=== PATIENT | female | born 1985 | race Caucasian/White ===

== ENCOUNTER 2016-11-22 02:38 | Emergency (ER) | payer BC, OTHER ==
[2016-11-22 02:45] VITALS: RESP 18
[2016-11-22] MEDS ORDERED: SODIUM CHLORIDE 0.9% 1,000 ML IV STA (02:54)
[2016-11-22] MEDS ORDERED: KETOROLAC 30 MG/ML 1 ML VIAL IVP STA (02:54)
[2016-11-22] MEDS ORDERED: FAMOTIDINE 20 MG/2 ML VIAL IV STA (02:55)
--- NOTE | 2016-11-22 02:57 | ED ---
General Adult HPI - General Chief complaint: Abdominal Pain Stated complaint: abd pain Time Seen by Provider: 11/22/16 02:50 Source: patient, RN notes reviewed Mode of arrival: ambulatory Limitations: no limitations - History of Present Illness Initial comments: Patient is a pleasant 31-year-old female presenting to the emergency department complaining of abdominal discomfort. Onset of symptoms was 2 hours ago. Symptoms awoke patient from sleep. Patient has had similar symptoms previously however not as bad. Discomfort is epigastric and right upper quadrant. Patient states earlier seem to radiate towards the back. No nausea or vomiting. No constipation or diarrhea. No hematuria or dysuria. No fever. Patient feels it is unlikely she could be . Discomfort is not positional. - Related Data Home Medications Medication Instructions Recorded Confirmed Levothyroxine Sodium [Synthroid] 125 mcg PO DAILY 03/10/15 11/22/16 Previous Rx's Medication Instructions Recorded Ketorolac [Toradol] 10 mg PO Q6HR PRN #15 tab 11/22/16 Allergies Allergy/AdvReac Type Severity Reaction Status Date / Time metoclopramide HCl Allergy Unknown Verified 03/10/15 17:31 [From DEMANDIT] Review of Systems ROS Statement: Those systems with pertinent positive or pertinent negative responses have been documented in the HPI. ROS Other: All systems not noted in ROS Statement are negative. Constitutional: Denies: fever, chills Eyes: Denies: eye pain ENT: Denies: ear pain Respiratory: Denies: cough, dyspnea Cardiovascular: Denies: chest pain Endocrine: Denies: fatigue Gastrointestinal: Reports: abdominal pain. Denies: nausea, vomiting, diarrhea, constipation Genitourinary: Denies: urgency, dysuria, frequency, hematuria Musculoskeletal: Denies: arthralgia Skin: Denies: rash Neurological: Denies: weakness Past Medical History Past Medical History: Thyroid Disorder History of Any Multi-Drug Resistant Organisms: None Reported Past Surgical History: Section Past Psychological History: No Psychological Hx Reported Smoking Status: Never smoker Past Alcohol Use History: None Reported Past Drug Use History: None Reported General Exam Limitations: no limitations General appearance: alert, in no apparent distress Head exam: Present: atraumatic Eye exam: Present: normal appearance, PERRL ENT exam: Present: normal oropharynx Neck exam: Present: normal inspection Respiratory exam: Present: normal lung sounds bilaterally Cardiovascular Exam: Present: regular rate, normal rhythm GI/Abdominal exam: Present: soft, tenderness (Moderate tenderness right upper quadrant and epigastric), normal bowel sounds. Absent: distended, guarding, rebound, rigid, pulsatile mass Extremities exam: Present: normal inspection. Absent: pedal edema, calf tenderness Back exam: Present: normal inspection. Absent: tenderness, CVA tenderness (R) Neurological exam: Present: alert Psychiatric exam: Present: normal affect, normal mood Skin exam: Absent: rash Course Vital Signs 11/22/16 02:41 Temperature 98.4 F Pulse Rate 74 Respiratory 18 Rate Blood Pressure 132/81 O2 Sat by Pulse 98 Oximetry Medical Decision Making - Medical Decision Making Patient reexamined and resting comfortably in bed. Patient states symptoms have significantly improved. Abdomen is soft with minimal tenderness right upper quadrant. Patient is comfortable with discharge home. Patient is updated on results and need for follow-up. Patient is advised that symptoms could be related to gallbladder problems and will need to be further evaluated. - Lab Data Result diagrams: 11/22/16 02:55 11/22/16 02:55 Lab Results 11/22/16 11/22/16 11/22/16 Range/Units 02:55 02:55 02:55 WBC 10.8 H (3.8-10.6) k/uL RBC 4.80 (3.80-5.40) m/uL Hgb 14.8 (11.4-16.0) gm/dL Hct 43.5 (34.0-46.0) % MCV 90.6 (80.0-100.0) fL MCH 30.9 (25.0-35.0) pg MCHC 34.1 (31.0-37.0) g/dL RDW 12.8 (11.5-15.5) % Plt Count 204 (150-450) k/uL Neutrophils % 64 % Lymphocytes % 26 % Monocytes % 6 % Eosinophils % 1 % Basophils % 0 % Neutrophils # 6.9 (1.3-7.7) k/uL Lymphocytes # 2.8 (1.0-4.8) k/uL Monocytes # 0.7 (0-1.0) k/uL Eosinophils # 0.1 (0-0.7) k/uL Basophils # 0.0 (0-0.2) k/uL PT 9.8 (9.0-12.0) sec INR 1.0 (<1.1) APTT 22.7 (22.0-30.0) sec Sodium 140 (137-145) mmol/L Potassium 3.9 (3.5-5.1) mmol/L Chloride 105 (98-107) mmol/L Carbon Dioxide 23 (22-30) mmol/L Anion Gap 12 mmol/L BUN 16 (7-17) mg/dL Creatinine 0.90 (0.52-1.04) mg/dL Est GFR (MDRD) Af Amer >60 (>60 ml/min/1.73 sqM) Est GFR (MDRD) Non-Af >60 (>60 ml/min/1.73 sqM) Glucose 132 H (74-99) mg/dL Calcium 9.5 (8.4-10.2) mg/dL Total Bilirubin 0.4 (0.2-1.3) mg/dL AST 20 (14-36) U/L ALT 34 (9-52) U/L Alkaline Phosphatase 51 (38-126) U/L Total Protein 7.4 (6.3-8.2) g/dL Albumin 4.2 (3.5-5.0) g/dL Amylase 41 (30-110) U/L Lipase 189 (23-300) U/L Urine Color Urine Appearance (Clear) Urine pH (5.0-8.0) Ur Specific [place] (1.001-1.035) Urine Protein (Negative) Urine Glucose (UA) (Negative) Urine Ketones (Negative) Urine Blood (Negative) Urine Nitrate (Negative) Urine Bilirubin (Negative) Urine Urobilinogen (<2.0) mg/dL Ur Leukocyte Esterase (Negative) Urine RBC (0-5) /hpf Urine WBC (0-5) /hpf Ur Squamous Epith Cells (0-4) /hpf Urine Bacteria (None) /hpf Urine Mucus (None) /hpf Urine Sperm (None) /hpf Urine HCG, Qual (Not Detectd) 11/22/16 11/22/16 Range/Units 02:55 02:55 WBC (3.8-10.6) k/uL RBC (3.80-5.40) m/uL Hgb (11.4-16.0) gm/dL Hct (34.0-46.0) % MCV (80.0-100.0) fL MCH (25.0-35.0) pg MCHC (31.0-37.0) g/dL RDW (11.5-15.5) % Plt Count (150-450) k/uL Neutrophils % % Lymphocytes % % Monocytes % % Eosinophils % % Basophils % % Neutrophils # (1.3-7.7) k/uL Lymphocytes # (1.0-4.8) k/uL Monocytes # (0-1.0) k/uL Eosinophils # (0-0.7) k/uL Basophils # (0-0.2) k/uL PT (9.0-12.0) sec INR (<1.1) APTT (22.0-30.0) sec Sodium (137-145) mmol/L Potassium (3.5-5.1) mmol/L Chloride (98-107) mmol/L Carbon Dioxide (22-30) mmol/L Anion Gap mmol/L BUN (7-17) mg/dL Creatinine (0.52-1.04) mg/dL Est GFR (MDRD) Af Amer (>60 ml/min/1.73 sqM) Est GFR (MDRD) Non-Af (>60 ml/min/1.73 sqM) Glucose (74-99) mg/dL Calcium (8.4-10.2) mg/dL Total Bilirubin (0.2-1.3) mg/dL AST (14-36) U/L ALT (9-52) U/L Alkaline Phosphatase (38-126) U/L Total Protein (6.3-8.2) g/dL Albumin (3.5-5.0) g/dL Amylase (30-110) U/L Lipase (23-300) U/L Urine Color Yellow Urine Appearance Cloudy H (Clear) Urine pH 6.0 (5.0-8.0) Ur Specific [place] 1.022 (1.001-1.035) Urine Protein Negative (Negative) Urine Glucose (UA) Negative (Negative) Urine Ketones Negative (Negative) Urine Blood Negative (Negative) Urine Nitrate Negative (Negative) Urine Bilirubin Negative (Negative) Urine Urobilinogen <2.0 (<2.0) mg/dL Ur Leukocyte Esterase Negative (Negative) Urine RBC 1 (0-5) /hpf Urine WBC 1 (0-5) /hpf Ur Squamous Epith Cells 9 H (0-4) /hpf Urine Bacteria Rare H (None) /hpf Urine Mucus Few H (None) /hpf Urine Sperm Rare (None) /hpf Urine HCG, Qual Not Detected (Not Detectd) - Radiology Data Interpreted by me: KUB shows no acute process Disposition Clinical Impression: Abdominal pain Disposition: HOME SELF-CARE Condition: Stable Instructions: Abdominal Pain (ED), Biliary Colic (ED) Additional Instructions: Please follow-up with your doctor in the next day or 2 for recheck. Please have your doctor consider ultrasound of the gallbladder or other further evaluation. Return for fevers, increased pain, vomiting, worsening symptoms or other concerns. Prescriptions: Ketorolac [Toradol] 10 mg PO Q6HR PRN #15 tab PRN Reason: Pain Referrals: Magnus Ervin MD [Primary Care Provider] - 1-2 days Reena Chacon MD [STAFF PHYSICIAN] - 1-2 days
[2016-11-22 03:16] LABS: Basophils % (A) 0 %; CH 31.4; CHCM 34.8; Eosinophils # (A) 0.1 k/uL (0-0.7); Eosinophils % (A) 1 %; HCT 43.5 % (34.0-46.0); HDW 2.67; HGB 14.8 gm/dL (11.4-16.0); Luc # (Auto) 0.17; Luc % (Auto) 2; Lymphocytes # (A) 2.8 k/uL (1.0-4.8); Lymphocytes % (A) 26 %; MCH 30.9 pg (25.0-35.0); MCHC 34.1 g/dL (31.0-37.0); MCV 90.6 fL (80.0-100.0); Mean Platelet Volume 7.8; Monocytes # (A) 0.7 k/uL (0-1.0); Monocytes % (A) 6 %; Neutrophils # (A) 6.9 k/uL (1.3-7.7); Neutrophils % (A) 64 %; RDW 12.8 % (11.5-15.5); WBC 10.8 k/uL (3.8-10.6); WBC (Perox) 11.14
[2016-11-22 03:18] LABS: Appearance,Urine Cloudy (Clear); Bacteria,Urine Rare /hpf; Bilirubin,Urine Negative (Negative); Glucose,Urine (UA) Negative (Negative); Ketones,Urine Negative (Negative); Leukocyte Esterase,Urine Negative (Negative); Mucus,Urine Few /hpf; Nitrite,Urine Negative (Negative); Particle Count 6558; Protein,Urine Negative (Negative); RBC,Urine 1 /hpf (0-5); Specific Gravity,Urine 1.022 (1.001-1.035); Sperm,Urine Rare /hpf; Squamous Epithelial Cell,Urine 9 /hpf (0-4); UA Billing (MACRO vs. MICRO) MICRO; Urobilinogen,Urine <2.0 mg/dL (<2.0); WBC,Urine 1 /hpf (0-5)
[2016-11-22 03:20] LABS: Partial Thromboplastin Time 22.7 sec (22.0-30.0); Prothrombin Time 9.8 sec (9.0-12.0)
[2016-11-22 03:24] LABS: ALT 34 U/L (9-52); AST 20 U/L (14-36); Alkaline Phosphatase 51 U/L (38-126); Amylase 41 U/L (30-110); Anion Gap 12 mmol/L; Blood Urea Nitrogen 16 mg/dL (7-17); Calcium 9.5 mg/dL (8.4-10.2); Carbon Dioxide 23 mmol/L (22-30); Chloride 105 mmol/L (98-107); Glucose 132 mg/dL (74-99); Non-African American GFR(MDRD) >60 (>60 ml/min/1.73 sqM); Potassium 3.9 mmol/L (3.5-5.1); Sodium 140 mmol/L (137-145); Total Bilirubin 0.4 mg/dL (0.2-1.3); Total Protein 7.4 g/dL (6.3-8.2)
[2016-11-22 03:48] VITALS: BP 114/55; PULSE 68; TEMP 98
--- NOTE | 2016-11-22 03:59 | XR ---
EXAMINATION TYPE: XR KUB DATE OF EXAM: 11/22/2016 3:26 AM COMPARISON: NONE HISTORY: Upper abdomen pain mostly right-sided pain history of . TECHNIQUE: 2 frontal views of supine and erect abdomen were obtained. FINDINGS: Mild gaseous distention of bowel loops is noted in the abdomen. No significant bowel obstru ction changes are noted. No abnormal calcifications are identified. No significant the visceromegaly is noted. IMPRESSION: 1. No bowel obstruction changes are noted.
== END 2016-11-22 03:48 | disposition home or self-care (01) ==
LOC: EC 02:38
DX: R10.11 Right upper quadrant pain (principal); R10.13 Epigastric pain; E07.9 Disorder of thyroid, unspecified; Z79.899 Other long term (current) drug therapy; Z88.8 Allergy status to other drugs, medicaments and biological substances
CPT/HCPCS: 36415; 80053; 82150; 83690; 85025; 85610; 85730; 81001; 81025; 74000; 99284; 96374; 96375; 96361; J1885

== ENCOUNTER → 2016-11-24 | Outpatient (CLI) | payer BC ==
--- NOTE | 2016-11-24 12:43 | US ---
EXAMINATION TYPE: US gallbladder DATE OF EXAM: 11/24/2016 12:32 PM COMPARISON: NONE CLINICAL HISTORY: RUQ Pain R10.11. Episode of severe RUQ pain EXAM MEASUREMENTS: Liver Length: 14.7 cm Gallbladder Wall: 0.2 cm CBD: 0.5 cm Right Kidney: 11.5 x 4.9 x 4.9 cm Pancreas: wnl, tail obscured by bowel gas Liver: wnl Gallbladder: Multiple gallstones/ wall not thickened Evidence for sonographic Bray's sign: No CBD: wnl Right Kidney: wnl IMPRESSION: Multiple gallstones
--- NOTE | 2016-11-24 14:49 | NM ---
EXAMINATION TYPE: NM hepatobiliary wo EF DATE OF EXAM: 11/24/2016 2:04 PM COMPARISON: NONE HISTORY: R10.11 rt upper quad pain TECHNIQUE: After the intravenous administration of 5.3 mCi Tc 99m Mebrofenin hepatobiliary scintigrap hy is performed. Immediate images post injection. FINDINGS: There is homogeneous distribution radiotracer throughout the liver. The common bile duct is visualize d as is the small bowel at approximately 12 to 18 minutes. The gallbladder is not evident to 58 minut es of imaging. The patient has left the department and delayed images are not possible this time. IMPRESSION: I cannot exclude cystic duct obstruction given lack of visualization of the gallbladder u p to 58 minutes. Delayed images could not be obtained given the fact that the patient left the depart ment and has subsequently eaten.
== END | disposition home or self-care (01) ==
LOC: RADUSWWP 12:15
PROVIDERS: ATTEND Family Medicine
DX: K80.20 Calculus of gallbladder without cholecystitis without obstruction (principal); R10.11 Right upper quadrant pain
CPT/HCPCS: 76705; 78226; A9537

== ENCOUNTER 2016-11-29 10:09 | Day surgery (SDC) | payer BC ==
[2016-11-28 15:11] VITALS: BMI 31.9
[~2016-11-29 10:09] MED LIST: HEPARIN SODIUM,PORCINE 5,000 UNIT/ML 1 ML VIAL SQ ONE; ceFAZolin 2 GM in SODIUM CHLORIDE 0.9% 100 ML IVPB ONE
[2016-11-29] MEDS ORDERED: LIDOCAINE 1% 20 ML VIAL (10MG/ML) FOR IV START INTRADERMA ONE (11:18)
[2016-11-29] MEDS ORDERED: ONDANSETRON 4 MG/2 ML VIAL IVP ONE (11:19)
[2016-11-29] MEDS ORDERED: DEXAMETHASONE SOD PHOSPHATE 10 MG/ML 1 ML VIAL IV ONE (11:20)
[2016-11-29] MEDS ORDERED: LACTATED RINGERS 1,000 ML IV ONE ×2 (11:20→12:29)
[2016-11-29] MEDS ORDERED: MIDAZOLAM 2 MG/2 ML VIAL ONE (11:35)
[2016-11-29] MEDS ORDERED: fentaNYL (PF) 50 MCG/ML 2 ML AMP ONE (11:35)
[2016-11-29] MEDS ORDERED: NEOSTIGMINE 1 MG/ML 10 ML VIAL ONE (11:35)
[2016-11-29] MEDS ORDERED: ROCURONIUM BROMIDE 10 MG/ML 10 ML VIAL IV ONE (11:35)
[2016-11-29] MEDS ORDERED: LIDOCAINE 1% INJ 10MG/ML (20 ML MDV) ONE (11:35)
[2016-11-29] MEDS ORDERED: SUCCINYLCHOLINE CHLORIDE 100 MG/5 ML SYR IV ONE (11:35)
[2016-11-29] MEDS ORDERED: GLYCOPYRROLATE 0.2 MG/ML 2 ML VIAL ONE (11:35)
[2016-11-29] MEDS ORDERED: PROPOFOL 10 MG/ML 20 ML VIAL IV ONE (11:35)
[2016-11-29] MEDS ORDERED: BUPIVACAIN-EPI 0.25%-1:200,000 30 ML VIAL SQ ONE ×2 (12:02→12:27)
[2016-11-29 12:51] VITALS: RESP 16; TEMP 97
[2016-11-29] MEDS: HYDROmorphone 1 MG/ML 1 ML SYRINGE IVP ONE ×6 (12:57→13:59)
[2016-11-29] MEDS ORDERED: PROMETHAZINE INJ 25 MG/ML 1 ML VIAL IVPB ONE (12:59)
--- NOTE | 2016-11-29 14:11 | P.OP ---
Date of Procedure: 11/29/16 Preoperative Diagnosis: Acute calculus cholecystitis Obesity BMI 32 Postoperative Diagnosis: Same Procedure(s) Performed: Laparoscopic cholecystectomy Implants: NA Anesthesia: GETA, local Surgeon: Reena Chacon Estimated Blood Loss (ml): 10 Pathology: other Condition: other (ASA 2) Disposition: PACU Indications for Procedure: 31 years old female presents with right upper quadrant pain for last few days. Ultrasound showed gallstones. HIDA scan showed cystic duct obstruction. Informed consent obtained and patient elected to undergo laparoscopic cholecystectomy possible open. The risks, benefits and potential complications including bleeding, infection, and admitted by Dr. gaviria were discussed and patient elected to undergo the procedure Operative Findings: Acute on chronic calculus cholecystitis with hydrops of the gallbladder Description of Procedure: The patient was brought to the operating room and placed in supine position with both arms out. General anesthesia with endotracheal intubation was performed as per anesthesia team. Chlorhexidine was used to prep the abdomen followed by application of sterile drapes. A timeout was performed to verify correct patient and correct procedure. Patient was confirmed to receive perioperative IV antibiotics , heparin 5000 units subcutaneous injection and bilateral SCDs were placed. A 5 mm skin incision was made below the left costal margin at the anterior axillary line. A Veress needle was inserted and pneumoperitoneum was established to a pressure of 15 mmHg. A 5 mm Optiview trocar was loaded on a 5 mm 30 laparoscope and the peritoneal cavity was entered under direct vision using the Optiview technique. Additional 5 mm trocar was placed in the supraumbilical location and two 5 mm trocars along the right subcostal margin. The left 5 mm trocar was upsized to 10mm. The patient was placed in reverse Trendelenburg with right side up. The gallbladder was markedly distended and the wall appeared edematous. A laparoscopic needle was used to aspirate 50 mL of clear fluid .The fundus of the gallbladder was grasped with an atraumatic grasper and was retracted over the dome of the liver. The infundibulum was grasped with an atraumatic grasper and retracted towards the pelvis to expose the Calot's triangle. Lateral and medial peritoneal attachment of the gallbladder bladder was dissected. Circumferential dissection was carried out around the cystic artery and the cystic duct to obtain adequate length for clip application. All the surrounding fibrofatty tissue were removed. Critical view was obtained with cystic duct and cystic artery as the only two structures entering the gallbladder. Two clips were applied on the patient's side and one on the specimen side on the cystic duct first followed by the cystic artery. Endoshears were used to divide the cystic duct and the cystic artery. The gallbladder was taken off the liver bed using a L-hook. It was placed in an endocatch specimen bag and removed through the 10mm port. The gallbladder was passed off as a specimen. The abdominal cavity was inspected. The clips on the cystic duct and cystic artery stump were intact and no bleeding noted from the liver bed. All the trocar sites were examined and no evidence of bleeding. The 10mm port site was closed with two transfascial sutures of 0 Vicryl using a Guilherme Toi device. The pneumoperitoneum was evacuated and all the trocars were removed. Local anesthetic was infiltrated along the trocar sites and incisions were closed using 4-0 Monocryl followed by application of Dermabond skin glue. The sponge, instrument and needle count were correct x2. Patient was extubated and taken to post anesthesia care unit in stable condition.
[2016-11-29] MEDS ORDERED: HYDROcodone/APAP 5-325MG 1 EACH TAB PO ONE (15:12)
[2016-11-29 15:33] VITALS: BP 105/70; PULSE 80
== END 2016-11-29 16:48 | disposition home or self-care (01) ==
LOC: OR 10:09
PROVIDERS: ATTEND Surgery
DX: K80.12 Calculus of gallbladder with acute and chronic cholecystitis without obstruction (principal); E66.9 Obesity, unspecified; Z68.32 Body mass index [BMI] 32.0-32.9, adult; E03.9 Hypothyroidism, unspecified; Z79.899 Other long term (current) drug therapy; Z88.8 Allergy status to other drugs, medicaments and biological substances
CPT/HCPCS: 81025; 88304; 47562; J2250; J1644; J1100; J2550; J2710; J0690; J2405; J2001; J3010; J1170; J0330; J2704

== ENCOUNTER → 2017-01-22 | Outpatient (CLI) | payer BC | END | disposition home or self-care (01) | LOC: LABWHC1 15:45 | PROVIDERS: ATTEND Internal Medicine Endocrinology, Diabetes & Metabolism | DX: E03.8 Other specified hypothyroidism (principal) | CPT/HCPCS: 36415; 84443 ==

== ENCOUNTER → 2017-02-03 | Outpatient (CLI) | payer BC | END | disposition home or self-care (01) | LOC: LABWHC1 10:21 | PROVIDERS: ATTEND Internal Medicine Endocrinology, Diabetes & Metabolism | DX: E03.9 Hypothyroidism, unspecified (principal) | CPT/HCPCS: 36415; 84443 ==

== ENCOUNTER → 2017-06-11 | Outpatient (CLI) | payer SELFPAY | END | disposition home or self-care (01) | LOC: LABWHC1 09:50 | PROVIDERS: ATTEND Internal Medicine Endocrinology, Diabetes & Metabolism | DX: E03.8 Other specified hypothyroidism (principal) | CPT/HCPCS: 36415; 84443 ==

== ENCOUNTER → 2017-08-15 | Outpatient (CLI) | payer OTHER | END | disposition home or self-care (01) | LOC: LABWHC1 14:20 | PROVIDERS: ATTEND Internal Medicine Endocrinology, Diabetes & Metabolism | DX: E03.8 Other specified hypothyroidism (principal) | CPT/HCPCS: 36415; 84443 ==

== ENCOUNTER → 2018-05-03 | Outpatient (CLI) | payer MEDICAID ==
--- NOTE | 2018-05-03 10:08 | US ---
EXAMINATION TYPE: US pelvis complete transvag DATE OF EXAM: 05/03/2018 COMPARISON: NONE CLINICAL HISTORY: 32-year-old female N92.6: Irregular menstruation, unspecified. TECHNIQUE: Transabdominal sonographic images of the pelvis were acquired. Transvaginal sonographic i mages were medically necessary to better assess the following anatomy: Ovaries Date of LMP: 04/30/2018 FINDINGS: EXAM MEASUREMENTS: Uterus: 8.6 x 4.1 x 5.1 cm Endometrial Stripe: 0.7 cm Right Ovary: 3.1 x 2.1 x 2.7 cm Left Ovary: 2.4 x 1.7 x 1.7 cm 1. Uterus: Anteverted Slightly heterogeneous myometrium. Tiny cervical nabothian cyst. 2. Endometrium: wnl 3. Right Ovary: Multiple follicles visualized, wnl 4. Left Ovary: Multiple follicles visualized, wnl 5. Bilateral Adnexa: wnl 6. Posterior cul-de-sac: wnl IMPRESSION: 1. Slightly heterogeneous myometrium may be seen with diffuse small fibroid change or adenomyosis. 2. Normal-sized ovaries with follicular change. 3. No pelvic free fluid.
== END | disposition home or self-care (01) ==
LOC: RADUSMAIN 09:25
PROVIDERS: ATTEND Obstetrics & Gynecology Reproductive Endocrinology
DX: N85.8 Other specified noninflammatory disorders of uterus (principal)
CPT/HCPCS: 76830; 76856

== ENCOUNTER → 2018-05-06 | Outpatient (CLI) | payer MEDICAID ==
[2018-05-06 10:59] LABS: ALT 31 U/L (9-52); AST 21 U/L (14-36); Blood Urea Nitrogen 14 mg/dL (7-17); Glucose 99 mg/dL (74-99)
[2018-05-06 11:17] LABS: HCG,Quantitative Serum <2.4 mIU/mL; T4, Free (Free Thyroxine) 1.25 ng/dL (0.78-2.19)
[2018-05-06 16:44] LABS: Vitamin D 25 Hydroxy 26.4 ng/mL (30.0-100.0)
[2018-05-06 18:35] LABS: Insulin Level 16.7 mIU/mL (3.0-25.0)
[2018-05-06 19:34] LABS: Hemoglobin A1C 5.3 % (4.0-6.0)
== END | disposition home or self-care (01) ==
LOC: LABWHC1 10:00
PROVIDERS: ATTEND Obstetrics & Gynecology Reproductive Endocrinology
DX: N92.6 Irregular menstruation, unspecified (principal)
CPT/HCPCS: 36415; 82306; 82565; 82670; 82947; 83001; 83036; 83520; 83525; 84146; 84402; 84403; 84439; 84443; 84450; 84460; 84481; 84520; 84702; 86376; 86762; 86787; 86800; 86850; 86900; 86901

== ENCOUNTER → 2018-06-03 | Outpatient (CLI) | payer MEDICAID ==
--- NOTE | 2018-06-03 23:35 | US ---
EXAMINATION TYPE: US transvaginal DATE OF EXAM: 06/03/2018 COMPARISON: 05/03/2018 CLINICAL HISTORY: 32-year-old female N97.9 Infertility,Z32.0. Order states to measure every follicle on each ovary. TECHNIQUE: Transvaginal (TV). Date of LMP: 05/31/2018 FINDINGS: EXAM MEASUREMENTS: Uterus: 8.7 x 3.9 x 5.8 cm Endometrial Stripe: 0.7 cm Right Ovary: 2.9 x 2.2 x 2.8 cm for a volume of 8.9 mL. Left Ovary: 2.4 x 2.0 x 1.9 cm for volume of 4.6 mL. 1. Uterus: Anteverted wnl 2. Endometrium: measures 0.7 cm 3. Right Ovary: six follicles seen, they measure 8 x 6 mm, 5 x 5 mm, 8 x 7 mm, 7 x 6 mm, 6 x 6 mm, a nd 9 x 7 mm. 4. Left Ovary: five follicles seen, they measure 7 x 5 mm, 6 x 6 mm, 8 x 4 mm, 5 x 5 mm, and 8 x 5 m m. 5. Bilateral Adnexa: wnl 6. Posterior cul-de-sac: no free fluid IMPRESSION: 1. Follicular change in the ovaries as detailed above. The ovaries are not particularly enlarged. 2. No specific abnormality seen by transvaginal scanning.
== END | disposition home or self-care (01) ==
LOC: RADUSWWP 16:12
PROVIDERS: ATTEND Obstetrics & Gynecology Reproductive Endocrinology
DX: N97.9 Female infertility, unspecified (principal); Z32.00 Encounter for pregnancy test, result unknown
CPT/HCPCS: 76830; 81025

== ENCOUNTER → 2018-06-20 | Outpatient (CLI) | payer MEDICAID | END | disposition home or self-care (01) | LOC: LABWHC1 14:24 | PROVIDERS: ATTEND Obstetrics & Gynecology Reproductive Endocrinology | DX: N97.9 Female infertility, unspecified (principal) | CPT/HCPCS: 36415; 84144 ==

== ENCOUNTER → 2018-06-27 | Outpatient (CLI) | payer MEDICAID | END | disposition home or self-care (01) | LOC: LABWHC1 11:16 | PROVIDERS: ATTEND Obstetrics & Gynecology Reproductive Endocrinology | DX: Z32.00 Encounter for pregnancy test, result unknown (principal) | CPT/HCPCS: 36415; 84702 ==

== ENCOUNTER → 2018-12-30 | Outpatient (CLI) | payer MEDICAID ==
[2018-12-30 18:31] LABS: T4, Free (Free Thyroxine) 1.2 ng/dL (0.80-1.80)
== END | disposition home or self-care (01) ==
LOC: LABWHC1 09:57
PROVIDERS: ATTEND Internal Medicine Endocrinology, Diabetes & Metabolism
DX: E55.9 Vitamin D deficiency, unspecified (principal); E03.9 Hypothyroidism, unspecified
CPT/HCPCS: 36415; 82306; 84439; 84443

== ENCOUNTER → 2019-02-04 | Outpatient (CLI) | payer MEDICAID ==
[2019-02-05 01:27] LABS: T4, Free (Free Thyroxine) 1.6 ng/dL (0.80-1.80)
== END | disposition home or self-care (01) ==
LOC: LABWHC1 15:52
PROVIDERS: ATTEND Internal Medicine Endocrinology, Diabetes & Metabolism
DX: E55.9 Vitamin D deficiency, unspecified (principal); E03.9 Hypothyroidism, unspecified
CPT/HCPCS: 36415; 82306; 84439; 84443

== ENCOUNTER 2019-05-28 06:12 | Inpatient (IN) | payer MEDICAID ==
[2019-05-28] MEDS ORDERED: KETOROLAC 30 MG/ML 1 ML VIAL IVP STA (06:56)
[2019-05-28] MEDS ORDERED: SODIUM CHLORIDE 0.9% 1,000 ML IV STA (06:56)
--- NOTE | 2019-05-28 07:21 | ED ---
General Adult HPI <JunaidSterling - Last Filed: 05/28/19 10:11> - General Source: patient Mode of arrival: ambulatory Limitations: no limitations <Pham Hicks - Last Filed: 05/29/19 03:11> - General Chief complaint: Back Pain/Injury Stated complaint: Rib pain up into shoulder Time Seen by Provider: 05/28/19 06:50 - History of Present Illness Initial comments: Raven is a previously healthy 33-year-old female presents to the emergency department today for evaluation of left side and left shoulder pain, pleuritic left-sided chest pain and pain with deep inspiration. Patient reports that pain began suddenly yesterday evening, his kept her up most the night. Pain is described as sharp, left lateral chest, worse with deep inspiration, pain seems to radiate from the lower chest to the shoulder. Patient describes it is similar to the pain she had in her right shoulder after she had her gallbladder removed. (Pham Hicks) - Related Data Home Medications Medication Instructions Recorded Confirmed Acetaminophen Tab [Tylenol Tab] 1,000 mg PO Q6HR PRN 05/28/19 05/28/19 Levothyroxine Sodium [Synthroid] 175 mcg PO DAILY 05/28/19 05/28/19 Liothyronine Sodium [Cytomel] 25 mcg PO DAILY 05/28/19 05/28/19 Norgestrel-Ethinyl Estradiol 1 tab PO HS 05/28/19 05/28/19 [[id number] Tablet] Previous Rx's Medication Instructions Recorded Apixaban [Eliquis Starter Pack 0 mg PO DIRECTED 30 Days #1 pack 05/28/19 (for VTE)] Allergies Allergy/AdvReac Type Severity Reaction Status Date / Time metoclopramide HCl Allergy Unknown Verified 05/28/19 07:36 [From Reglan] adhesive tape AdvReac owens skin Verified 05/28/19 07:36 metals Allergy Unknown Uncoded 11/28/16 14:49 Review of Systems ROS Other: All systems not noted in ROS Statement are negative. <Sterling Quiroga - Last Filed: 05/28/19 10:11> ROS Other: All systems not noted in ROS Statement are negative. <Pham Hicks - Last Filed: 05/29/19 03:11> ROS Statement: Those systems with pertinent positive or pertinent negative responses have been documented in the HPI. Past Medical History Past Medical History: Thyroid Disorder Additional Past Medical History / Comment(s): gallstones & epigastric pain & burning History of Any Multi-Drug Resistant Organisms: None Reported Past Surgical History: Section, Cholecystectomy Past Anesthesia/Blood Transfusion Reactions: No Reported Reaction Past Psychological History: No Psychological Hx Reported Smoking Status: Never smoker Past Alcohol Use History: None Reported Past Drug Use History: None Reported - Past Family History Mother Family Medical History: No Reported History Father Family Medical History: No Reported History Additional Family Medical History / Comment(s): Father is healthy Grandmother Family Medical History: AFIB Additional Family Medical History / Comment(s): Intracardiac thrombus <Pham Hicks - Last Filed: 05/29/19 03:11> General Exam Limitations: no limitations <Pham Hicks - Last Filed: 05/29/19 03:11> - General Exam Comments Initial Comments: Physical Exam GENERAL: Patient is well-developed and well-nourished. Patient is nontoxic and well- hydrated and is in no distress. HENT: Normocephalic, Atraumatic. EYES: PERRL, EOMI PULMONARY: Unlabored respirations. No audible rales rhonchi or wheezing was noted. CARDIOVASCULAR: There is a regular rate and rhythm without any murmurs gallops or rubs. ABDOMEN: Soft and nontender with normal bowel sounds. SKIN: Skin is clear with no lesions or rashes and otherwise unremarkable. No rash overlying the ribs : Deferred NEUROLOGIC: Patient is alert and oriented x3. Moving all extremities spontaneously MUSCULOSKELETAL: Normal extremities with adequate strength and full range of motion. No lower extremity swelling or edema. No calf tenderness. Tenderness to palpation of the ribs PSYCHIATRIC: Normal psychiatric evaluation (Pham Hicks) Course <Sterling Quiroga - Last Filed: 05/28/19 10:11> Vital Signs 05/28/19 05/28/19 05/28/19 06:15 10:42 10:52 Temperature 97.4 F L 97.9 F 97.9 F Pulse Rate 69 63 101 H Pulse Rate [ Pulse Oximetery ] Respiratory 18 18 18 Rate Blood Pressure 129/87 118/82 143/90 O2 Sat by Pulse 100 97 100 Oximetry 05/28/19 05/28/19 05/28/19 11:27 13:05 14:26 Temperature 97.1 F L 98.6 F Pulse Rate 85 75 Pulse Rate [ 86 Pulse Oximetery ] Respiratory 19 18 18 Rate Blood Pressure 124/61 128/72 O2 Sat by Pulse 97 98 Oximetry - Reevaluation(s) Reevaluation #1: 05/28/19 10:11 The patient was endorsed me at our shift change pending results of the CAT scan of the chest to rule out pulmonary embolism. CAT scan was performed there is evidence of left lower lobe pulmonary emboli. Patient does have a grandmother that had blood clots in the past she states she also is on control pills. I did discuss the case with Dr. Mccoy the patient will be admitted (Sterling Quiroga) Medical Decision Making - Lab Data Result diagrams: 05/28/19 07:10 05/28/19 07:10 <Sterling Quiroga - Last Filed: 05/28/19 10:11> - Lab Data Result diagrams: 05/28/19 07:10 05/28/19 07:10 <Pham Hicks - Last Filed: 05/29/19 03:11> - Medical Decision Making The patient was seen and evaluated, history is obtained from the patient History and physical exam are concerning for pleuritic chest pain that seems to be irritating the diaphragm with radiation to the shoulder This is concerning for possible pulmonary embolism though the patient's only risk factor is that she is on estrogen control Labs and CT were ordered Patient was taken to CT but reported to much discomfort to lay down, morphine was ordered Patient care was signed out to Dr. Quiroga at shift change, computed tomography scan was pending (Pham Hicks) - Lab Data Lab Results 05/28/19 05/28/19 05/28/19 Range/Units 07:10 07:10 07:10 WBC 13.5 H (3.8-10.6) k/uL RBC 4.84 (3.80-5.40) m/uL Hgb 14.7 (11.4-16.0) gm/dL Hct 42.9 (34.0-46.0) % MCV 88.7 (80.0-100.0) fL MCH 30.4 (25.0-35.0) pg MCHC 34.3 (31.0-37.0) g/dL RDW 14.1 (11.5-15.5) % Plt Count 237 (150-450) k/uL Neutrophils % 75 % Lymphocytes % 16 % Monocytes % 6 % Eosinophils % 1 % Basophils % 0 % Neutrophils # 10.1 H (1.3-7.7) k/uL Lymphocytes # 2.2 (1.0-4.8) k/uL Monocytes # 0.9 (0-1.0) k/uL Eosinophils # 0.1 (0-0.7) k/uL Basophils # 0.1 (0-0.2) k/uL PT 9.3 (9.0-12.0) sec INR 0.8 (<1.2) APTT 22.3 (22.0-30.0) sec Sodium 140 (137-145) mmol/L Potassium 4.5 (3.5-5.1) mmol/L Chloride 108 H (98-107) mmol/L Carbon Dioxide 22 (22-30) mmol/L Anion Gap 10 mmol/L BUN 15 (7-17) mg/dL Creatinine 0.69 (0.52-1.04) mg/dL Est GFR (CKD-EPI)AfAm >90 (>60 ml/min/1.73 sqM) Est GFR (CKD-EPI)NonAf >90 (>60 ml/min/1.73 sqM) Glucose 112 H (74-99) mg/dL Calcium 9.8 (8.4-10.2) mg/dL Total Bilirubin 0.7 (0.2-1.3) mg/dL AST 26 (14-36) U/L ALT 25 (9-52) U/L Alkaline Phosphatase 52 (38-126) U/L Troponin I (0.000-0.034) ng/mL Total Protein 7.9 (6.3-8.2) g/dL Albumin 4.3 (3.5-5.0) g/dL Urine Color Urine Appearance (Clear) Urine pH (5.0-8.0) Ur Specific Everson (1.001-1.035) Urine Protein (Negative) Urine Glucose (UA) (Negative) Urine Ketones (Negative) Urine Blood (Negative) Urine Nitrite (Negative) Urine Bilirubin (Negative) Urine Urobilinogen (<2.0) mg/dL Ur Leukocyte Esterase (Negative) Urine RBC (0-5) /hpf Urine WBC (0-5) /hpf Ur Squamous Epith Cells (0-4) /hpf Urine Bacteria (None) /hpf Urine Mucus (None) /hpf Urine HCG, Qual (Not Detectd) 05/28/19 05/28/19 05/28/19 Range/Units 07:10 07:15 07:15 WBC (3.8-10.6) k/uL RBC (3.80-5.40) m/uL Hgb (11.4-16.0) gm/dL Hct (34.0-46.0) % MCV (80.0-100.0) fL MCH (25.0-35.0) pg MCHC (31.0-37.0) g/dL RDW (11.5-15.5) % Plt Count (150-450) k/uL Neutrophils % % Lymphocytes % % Monocytes % % Eosinophils % % Basophils % % Neutrophils # (1.3-7.7) k/uL Lymphocytes # (1.0-4.8) k/uL Monocytes # (0-1.0) k/uL Eosinophils # (0-0.7) k/uL Basophils # (0-0.2) k/uL PT (9.0-12.0) sec INR (<1.2) APTT (22.0-30.0) sec Sodium (137-145) mmol/L Potassium (3.5-5.1) mmol/L Chloride (98-107) mmol/L Carbon Dioxide (22-30) mmol/L Anion Gap mmol/L BUN (7-17) mg/dL Creatinine (0.52-1.04) mg/dL Est GFR (CKD-EPI)AfAm (>60 ml/min/1.73 sqM) Est GFR (CKD-EPI)NonAf (>60 ml/min/1.73 sqM) Glucose (74-99) mg/dL Calcium (8.4-10.2) mg/dL Total Bilirubin (0.2-1.3) mg/dL AST (14-36) U/L ALT (9-52) U/L Alkaline Phosphatase (38-126) U/L Troponin I <0.012 (0.000-0.034) ng/mL Total Protein (6.3-8.2) g/dL Albumin (3.5-5.0) g/dL Urine Color Yellow Urine Appearance Clear (Clear) Urine pH 5.5 (5.0-8.0) Ur Specific Everson 1.013 (1.001-1.035) Urine Protein Negative (Negative) Urine Glucose (UA) Negative (Negative) Urine Ketones Negative (Negative) Urine Blood Small H (Negative) Urine Nitrite Negative (Negative) Urine Bilirubin Negative (Negative) Urine Urobilinogen <2.0 (<2.0) mg/dL Ur Leukocyte Esterase Negative (Negative) Urine RBC <1 (0-5) /hpf Urine WBC <1 (0-5) /hpf Ur Squamous Epith Cells <1 (0-4) /hpf Urine Bacteria Rare H (None) /hpf Urine Mucus Rare H (None) /hpf Urine HCG, Qual Not Detected (Not Detectd) Disposition <Sterling Quiroga - Last Filed: 05/28/19 10:11> <Pham Hicks - Last Filed: 05/29/19 03:11> Clinical Impression: Pulmonary embolism on left, Chest pain Disposition: ADMITTED IP TO THIS HOSP Condition: Fair
--- NOTE | 2019-05-28 07:26 | XR ---
EXAMINATION TYPE: XR ribs LT DATE OF EXAM: 05/28/2019 COMPARISON: NONE HISTORY: Spontaneous pain with inspiration. TECHNIQUE: A frontal and oblique images of the left-sided ribs are acquired. FINDINGS: No acute displaced left-sided rib fractures are seen. No suspicious expansile or destructiv e rib lesions are present. Overlying soft tissue is unremarkable. IMPRESSION: Unremarkable study.
[2019-05-28 07:50] LABS: ALT 25 U/L (9-52); AST 26 U/L (14-36); African American GFR (CKD) >90 (>60 ml/min/1.73 sqM); Albumin 4.3 g/dL (3.5-5.0); Alkaline Phosphatase 52 U/L (38-126); Anion Gap 10 mmol/L; Blood Urea Nitrogen 15 mg/dL (7-17); Calcium 9.8 mg/dL (8.4-10.2); Carbon Dioxide 22 mmol/L (22-30); Chloride 108 mmol/L (98-107); Glucose 112 mg/dL (74-99); Potassium 4.5 mmol/L (3.5-5.1); Sodium 140 mmol/L (137-145); Total Bilirubin 0.7 mg/dL (0.2-1.3); Total Protein 7.9 g/dL (6.3-8.2)
[2019-05-28 07:52] LABS: Appearance,Urine Clear (Clear); Bacteria,Urine Rare /hpf; Bilirubin,Urine Negative (Negative); Blood,Urine Small (Negative); Color,Urine Yellow; Glucose,Urine (UA) Negative (Negative); Ketones,Urine Negative (Negative); Leukocyte Esterase,Urine Negative (Negative); Mucus,Urine Rare /hpf; Nitrite,Urine Negative (Negative); PH, Urine 5.5 (5.0-8.0); Protein,Urine Negative (Negative); RBC,Urine <1 /hpf (0-5); Specific Gravity,Urine 1.013 (1.001-1.035); Squamous Epithelial Cell,Urine <1 /hpf (0-4); Urobilinogen,Urine <2.0 mg/dL (<2.0); WBC,Urine <1 /hpf (0-5)
[2019-05-28 07:57] LABS: Basophils # (A) 0.1 k/uL (0-0.2); Basophils % (A) 0 %; Eosinophils # (A) 0.1 k/uL (0-0.7); Eosinophils % (A) 1 %; HCT 42.9 % (34.0-46.0); HGB 14.7 gm/dL (11.4-16.0); Lymphocytes # (A) 2.2 k/uL (1.0-4.8); Lymphocytes % (A) 16 %; MCH 30.4 pg (25.0-35.0); MCHC 34.3 g/dL (31.0-37.0); MCV 88.7 fL (80.0-100.0); Mean Platelet Volume 8.4; Monocytes # (A) 0.9 k/uL (0-1.0); Monocytes % (A) 6 %; Neutrophils # (A) 10.1 k/uL (1.3-7.7); Neutrophils % (A) 75 %; Platelet Count 237 k/uL (150-450); RBC 4.84 m/uL (3.80-5.40); RDW 14.1 % (11.5-15.5); WBC 13.5 k/uL (3.8-10.6)
[2019-05-28] MEDS ORDERED: MORPHINE SULFATE 4 MG/ML SYRINGE IVP STA (08:20)
--- NOTE | 2019-05-28 09:08 | CT ---
EXAMINATION TYPE: CT chest angio for PE DATE OF EXAM: 05/28/2019 COMPARISON: None HISTORY: Lt sided rib pain radiating around back, painful inspiration CT DLP: 257.9 mGycm CONTRAST: CT chest with contrast and 3D reconstruction with MIP imaging is performed with IV Contrast, patient injected with 56 mL of Isovue 370. Contrast-enhanced CT of the chest was performed through the course of the pulmonary arteries with divya g and mediastinal window settings submitted. 3D reconstruction with MIP imaging was also performed. PULMONARY ARTERIES: Thrombus is noted to fill a second order left lower lobe pulmonary arterial branc h with third order vessels demonstrating filling defect as well. There is no evidence for sagittal co mponent. Left upper lobe is free of thrombus. No right-sided pulmonary embolism noted. LUNGS: The lungs are clear and free of infiltrate. No evidence for atelectasis. No pulmonary nodule or mass is detected. No pleural effusion. MEDIASTINUM: Thoracic aorta is of normal caliber,however, evaluation is limited given timing of the contrast bolus. If there is concern for thoracic aortic pathology consider ED. Correlate clinicall y . The heart is not enlarged. No evidence for mediastinal mass. No mediastinal lymph nodes greater than 1cm. HILAR STRUCTURES: No evidence for mass. No hilar lymph nodes greater than 1 cm. UPPER ABDOMEN: No significant abnormality is seen. IMPRESSION: 1. Findings compatible with pulmonary embolism.
[2019-05-28] MEDS ORDERED: HEPARIN SODIUM,PORCINE 10,000 UNIT/ML 1 ML VIAL IV ONE (09:33)
[2019-05-28] MEDS ORDERED: HEPARIN SODIUM,PORCINE 5,000 UNIT/ML 1 ML VIAL IV PRN (09:33)
[2019-05-28] MEDS ORDERED: HEPARIN SOD,PORK IN 0.45% NACL 25,000 UNIT in 0.45% NACL 1 250ML.BAG IV SCH (09:45)
[2019-05-28 10:03] LABS: INR 0.8 (<1.2); Partial Thromboplastin Time 22.3 sec (22.0-30.0); Prothrombin Time 9.3 sec (9.0-12.0)
[2019-05-28] MEDS ORDERED: ENOXAPARIN 80 MG/0.8 ML SYRINGE SQ STA (10:03)
[2019-05-28] MEDS ORDERED: NALOXONE 0.4 MG/ML 1 ML VIAL IV PRN ×2 (10:13→13:41)
[2019-05-28] MEDS ORDERED: ACETAMINOPHEN TAB 500 MG TAB PO PRN (10:15)
[2019-05-28] MEDS ORDERED: ONDANSETRON 4 MG/2 ML VIAL IVP PRN (13:41)
[2019-05-28] MEDS ORDERED: ACETAMINOPHEN TAB 325 MG TAB PO PRN (13:41)
[2019-05-28] MEDS: MORPHINE SULFATE 4 MG/ML SYRINGE IVP PRN ×3 (13:55→22:14)
--- NOTE | 2019-05-28 14:02 | P.HPIM ---
History of Present Illness H&P Date: 05/28/19 Chief Complaint: shoulder pain She is a 33-year-old female with a past medical history of hypothyroidism who presented to the emergency department with complaints of left side and shoulder pain. In the ER she underwent an extensive evaluation. Her initial vital signs were within normal limits. Initial laboratory analysis showed an elevated white blood cell count 13.5. CT AF the chest showed pulmonary embolism in the left lower lobe second and third arterial branches. She is given a dose of Lovenox in the emergency department and arrangements made for admission. Patient seen and examined at bedside with her and mother present. She states that yesterday evening she started having some left side pain right before bed at about 9:30. She woke up at 1:30 AM and was having severe left- sided pain approximately 8 out of 10 with radiation to her left shoulder. She was able to get back to sleep and then she woke up again at 5:30 this morning with 10 out of 10 pain in her left side and left shoulder. She therefore presented to the emergency department. She does know that the pain is worse with deep breathing and better if she lays still. For the last week she was having some difficulty catching her breath. She thought it was because she had a stuffy nose and the humidity outside. She denies any overt shortness of breath, lightheadedness, dizziness, syncopal events, chest pain, or palpitations. She does take control on a daily basis. She has not recently taken any car trips, plane rides, had surgery, or any medication adjus tments. She reports that for the last 3-4 days she has had pain behind her left knee. She describes this as a pulling feeling that is worse with walking. She did not note any edema in that leg. She thought that maybe she had twisted her knee as her and her heparin working out more recently. She denies any family history of blood clots other than her grandmother who had an intracardiac thrombus noted when they were attempting cardioversion for atrial fibrillation. She had one uneventful resulting in . Review of Systems Pertinent positives and negatives as discussed in HPI, a complete review of systems was performed and all other systems are negative. Past Medical History Past Medical History: Thyroid Disorder Additional Past Medical History / Comment(s): Hypothyroid History of Any Multi-Drug Resistant Organisms: None Reported Past Surgical History: Section, Cholecystectomy Past Anesthesia/Blood Transfusion Reactions: No Reported Reaction Additional Past Anesthesia/Blood Transfusion Reaction / Comment(s): Difficulty waking. 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 - Past Family History Mother Family Medical History: No Reported History Additional Family Medical History / Comment(s): Mother is healthy Father Family Medical History: No Reported History Additional Family Medical History / Comment(s): Father is healthy Grandmother Family Medical History: AFIB Additional Family Medical History / Comment(s): Intracardiac thrombus Medications and Allergies Home Medications Medication Instructions Recorded Confirmed Type Acetaminophen Tab [Tylenol Tab] 1,000 mg PO Q6HR PRN 05/28/19 05/28/19 History Apixaban [Eliquis Starter Pack 0 mg PO DIRECTED 30 Days #1 pack 05/28/19 Rx (for VTE)] Levothyroxine Sodium [Synthroid] 175 mcg PO DAILY 05/28/19 05/28/19 History Liothyronine Sodium [Cytomel] 25 mcg PO DAILY 05/28/19 05/28/19 History Norgestrel-Ethinyl Estradiol 1 tab PO HS 05/28/19 05/28/19 History [[id number] Tablet] Allergies Allergy/AdvReac Type Severity Reaction Status Date / Time metoclopramide HCl Allergy Unknown Verified 05/28/19 07:36 [From Reglan] adhesive tape AdvReac owens skin Verified 05/28/19 07:36 metals Allergy Unknown Uncoded 11/28/16 14:49 Physical Exam Osteopathic Statement: *. No significant issues noted on an osteopathic structural exam other than those noted in the History and Physical/Consult. Vitals: Vital Signs Temp Pulse Resp BP Pulse Ox 05/28/19 11:27 97.1 F L 85 19 124/61 97 05/28/19 10:52 97.9 F 101 H 18 143/90 100 05/28/19 10:42 97.9 F 63 18 118/82 97 05/28/19 06:15 97.4 F L 69 18 129/87 100 Intake and Output 05/27/19 05/28/19 05/28/19 22:59 06:59 14:59 Other: Weight 84.822 kg General: non toxic, mild distress secondary to pain, appears at stated age, normal weight Derm: no unusual rashes/lesions no unusual ecchymoses, warm, dry Head: atraumatic, normocephalic, symmetric Eyes: EOMI, no lid lag, anicteric sclera, pupils equal round reactive to light ENT: Nose and ears atraumatic, no thrush, no pharyngeal erythema Neck: No thyromegaly, no cervical lymphadenopathy, trachea midline, supple Mouth: no lip lesion, mucus membranes moist Cardiovascular: S1S2 reg, no murmur, positive posterior tibial pulse bilateral, 1+ edema left lower extremity, capillary refill less than 2 seconds, tenderness to palpation of left chest wall Lungs: CTA bilateral, no rhonchi, no rales , no accessory muscle use Abdominal: soft, nontender to palpation, no guarding, no appreciable organomegaly, normal bowel sounds Ext: no gross muscle atrophy, muscle strength 5 out of 5 in all 4 extremities grossly, no contractures, Neuro: CN II-XI grossly intact, light touch intact all 4 extremities, finger to nose within normal limits, Psych: Alert, oriented, appropriate affect Results CBC & Chem 7: 05/28/19 07:10 05/28/19 07:10 Labs: Abnormal Lab Results - Last 24 Hours (Table) 05/28/19 05/28/19 05/28/19 Range/Units 07:10 07:10 07:15 WBC 13.5 H (3.8-10.6) k/uL Neutrophils # 10.1 H (1.3-7.7) k/uL Chloride 108 H (98-107) mmol/L Glucose 112 H (74-99) mg/dL Urine Blood Small H (Negative) Urine Bacteria Rare H (None) /hpf Urine Mucus Rare H (None) /hpf CT scan - chest: report reviewed Thrombosis Risk Factor Assmnt - DVT/VTE Prophylaxis DVT/VTE Prophylaxis: Pharmacologic Prophylaxis ordered - Choose All That Apply Any of the Below Risk Factors Present?: Yes Each Factor Represents 1 point: Obesity (BMI >25) Other Risk Factors: No Other congenital or acquired thrombophilia - If yes, enter type in comment: No Thrombosis Risk Factor Assessment Total Risk Factor Score: 1 Thrombosis Risk Factor Assessment Level: Low Risk Assessment and Plan Assessment: Acute left lower lobe pulmonary embolism -Has received first dose of Lovenox in the ER -Check prescription coverage for eliquis -Pain control - Check echo secondary to persistent tachycardia -Check venous Doppler of left lower extremity -Off control - tele Pleurisy - due to PE - Pain control with norco and morphine Leukocytosis, likely reactive -Repeat CBC in a.m. Hypothyroidism -Resume Synthroid, cytomel -Outpatient follow-up with Dr. Luo The patient is placed in observation with an anticipated less than 2 per night stay for evaluation of Acute pulmonary embolism. Surrogate decision-maker: CODE STATUS:Full DVT prophylaxis: on lovenox Discussed with: patient, mother, , ED attending nursing Anticipated discharge date: 1-[address]: home A total of 55 minutes was spent on the care of this complex patient more than 50% of the time was spent in counseling and care coordination.
[2019-05-28] MEDS: SODIUM CHLORIDE 0.9% 1,000 ML IV SCH (15:14)
[2019-05-28] MEDS: HYDROcodone/APAP 5-325MG 1 EACH TAB PO PRN ×2 (15:43→20:28)
--- NOTE | 2019-05-28 18:07 | US ---
EXAMINATION TYPE: US venous doppler duplex LE LT DATE OF EXAM: 05/28/2019 1:59 PM COMPARISON: NONE CLINICAL HISTORY: pain, swelling. has Pulmonary Embolism. Left leg swelling SIDE PERFORMED: Left TECHNIQUE: The lower extremity deep venous system is examined utilizing real time linear array sonog nel with graded compression, doppler sonography and color-flow sonography. VESSELS IMAGED: External Iliac Vein (EIV) Common Femoral Vein Deep Femoral Vein Greater Saphenous Vein * Femoral Vein Popliteal Vein Small Saphenous Vein * Proximal Calf Veins (* superficial vessels) . There is normal flow, compressibility, vascular waveforms. Left Leg: Negative for DVT IMPRESSION: No evident deep venous thrombosis at or above the left knee.
[2019-05-28] MEDS: ENOXAPARIN 80 MG/0.8 ML SYRINGE SQ SCH (19:49)
[2019-05-29] MEDS: HYDROcodone/APAP 5-325MG 1 EACH TAB PO PRN ×3 (00:06→11:08)
[2019-05-29] MEDS: MORPHINE SULFATE 4 MG/ML SYRINGE IVP PRN ×4 (03:21→19:40)
[2019-05-29] MEDS: LEVOTHYROXINE 88 MCG TAB PO SCH (04:30)
[2019-05-29] MEDS: ENOXAPARIN 80 MG/0.8 ML SYRINGE SQ SCH (07:39)
[2019-05-29] MEDS: LIOTHYRONINE SODIUM 5 MCG TAB PO SCH (07:39)
[2019-05-29] MEDS: SODIUM CHLORIDE 0.9% 1,000 ML IV SCH (07:40)
[2019-05-29 07:55] LABS: Basophils % (A) 0 %; Eosinophils % (A) 0 %; HCT 39.9 % (34.0-46.0); HGB 13.2 gm/dL (11.4-16.0); Lymphocytes # (A) 1.6 k/uL (1.0-4.8); Lymphocytes % (A) 12 %; MCH 29.7 pg (25.0-35.0); MCHC 33.1 g/dL (31.0-37.0); MCV 89.7 fL (80.0-100.0); Mean Platelet Volume 8.2; Monocytes # (A) 0.9 k/uL (0-1.0); Monocytes % (A) 7 %; Neutrophils # (A) 11.1 k/uL (1.3-7.7); Neutrophils % (A) 80 %; Platelet Count 246 k/uL (150-450); RBC 4.44 m/uL (3.80-5.40); RDW 12.3 % (11.5-15.5); WBC 13.9 k/uL (3.8-10.6)
--- NOTE | 2019-05-29 12:00 | ECHOF ---
Referral Reason:pulmonary embolism, chest pain MEASUREMENTS -------- HEIGHT: 175.3 cm WEIGHT: 84.8 kg BP: 124/61 RVIDd: 2.2 cm (< 3.3) IVSd: 1.1 cm (0.6 - 1.1) LVIDd: 4.3 cm (3.9 - 5.3) LVPWd: 1.0 cm (0.6 - 1.1) IVSs: 1.6 cm LVIDs: 2.6 cm LVPWs: 1.6 cm LAESV Index (A-L): 14.50 ml/m Ao Diam: 2.1 cm (2.0 - 3.7) AV Cusp: 1.4 cm (1.5 - 2.6) LA Diam: 3.2 cm (2.7 - 3.8) MV EXCURSION: 11.388 mm (> 18.000) MV EF SLOPE: 131 mm/s (70 - 150) EPSS: 0.5 cm MV E Timbo: 0.86 m/s MV DecT: 218 ms MV A Timbo: 0.67 m/s MV E/A Ratio: 1.28 RAP: 20.00 mmHg RVSP: 34.78 mmHg FINDINGS -------- Sinus rhythm. This was a technically good study. The left ventricular size is normal. Left ventricular wall thickness is normal. There is normal g lobal left ventricular contractility. Overall left ventricular systolic function is normal with, an EF between 55 - 60 %. The diastolic filling pattern is normal for the age of the patient 7.76. The right ventricle is normal in size. Normal LA size by volume 22+/-6 ml/m2. The right atrial size is normal. Interatrial and interventricular septum intact. There is no evidence of aortic regurgitation. There is no evidence of aortic stenosis. There is trace mitral regurgitation. Mild tricuspid regurgitation present. There is no evidence of pulmonary hypertension. The right v entricular systolic pressure, as measured by Doppler, is 34.78mmHg. There is no pulmonic regurgitation present. The aortic root size is normal. The inferior vena cava is dilated with no significant inspiratory collapse which is consistent estima juan right atrial pressure of >20 mmHg. There is a trivial pericardial effusion present. CONCLUSIONS -------- 1. Sinus rhythm. 2. This was a technically good study. 3. The left ventricular size is normal. 4. Left ventricular wall thickness is normal. 5. There is normal global left ventricular contractility. 6. Overall left ventricular systolic function is normal with, an EF between 55 - 60 %. 7. The diastolic filling pattern is normal for the age of the patient 7.76 8. The right ventricle is normal in size. 9. Normal LA size by volume 22+/-6 ml/m2. 10. The right atrial size is normal. 11. Interatrial and interventricular septum intact. 12. There is no evidence of aortic regurgitation. 13. There is no evidence of aortic stenosis. 14. There is trace mitral regurgitation. 15. Mild tricuspid regurgitation present. 16. There is no evidence of pulmonary hypertension. 17. The right ventricular systolic pressure, as measured by Doppler, is 34.78mmHg. 18. There is no pulmonic regurgitation present. 19. The aortic root size is normal. 20. The inferior vena cava is dilated with no significant inspiratory collapse which is consistent es timated right atrial pressure of >20 mmHg. 21. There is a trivial pericardial effusion present. EXTRACT PULLER: Keya Sarabia RDCS
[2019-05-29] MEDS: HYDROcodone/APAP 10-325MG 1 EACH TAB PO PRN ×2 (15:14→21:45)
--- NOTE | 2019-05-29 19:02 | P.PN ---
Subjective Progress Note Date: 05/29/19 (delayed charting seen at 10 am) Principal diagnosis: left side pain She is a 33-year-old female with a past medical history of hypothyroidism who presented to the emergency department with complaints of left side and shoulder pain. In the ER she underwent an extensive evaluation. Her initial vital signs were within normal limits. Initial laboratory analysis showed an elevated white blood cell count 13.5. CT AF the chest showed pulmonary embolism in the left lower lobe second and third arterial branches. She is given a dose of Lovenox in the emergency department and arrangements made for admission. She continued to have significant amount of pain during her hospital stay. Patient seen and examined at bedside. She states that her pain has moved from her left mid axillary line down to her left breast. Worse with movement and deep inspiration. No nausea, vomiting, or shortness of breath. Feeling slightly better than yesterday. Objective - Vital Signs Vital signs: Vital Signs Temp 98.5 F 05/29/19 15:42 Pulse 115 H 05/29/19 15:42 Resp 20 05/29/19 15:42 BP 135/74 05/29/19 15:42 Pulse Ox 98 05/29/19 15:42 Intake & Output 05/28/19 05/29/19 05/29/19 18:59 06:59 18:59 Intake Total 222 410 388 Output Total 775 Balance 222 410 -387 Weight 84.4 kg Intake: IV 10 Invasive Line 1 10 Intake, IV Titration 400 Amount Sodium Chloride 0.9% 1, 400 000 ml @ 50 mls/hr IV . Q20H [facility] Rx#:[id number] Oral 222 388 Output: Urine 775 Other: Voiding Method Toilet # Voids 2 1 - Exam General: ill appearing, mild distress due to pain, appears at stated age Derm: warm, diaphoretic Head: atraumatic, normocephalic, symmetric Eyes: EOMI, no lid lag, anicteric sclera Mouth: no lip lesion, mucus membranes moist Cardiovascular: S1S2 reg, no murmur, positive posterior tibial pulse bilateral, Lungs: CTA bilateral, no rhonchi, no rales , no accessory muscle use Abdominal: soft, nontender to palpation, no guarding, no appreciable organome toni Ext: no gross muscle atrophy, no edema, no contractures Neuro: CN II-XI grossly intact, no focal neuro deficits Psych: Alert, oriented, appropriate affect - Labs CBC & Chem 7: 05/29/19 06:50 05/28/19 07:10 Labs: Abnormal Lab Results - Last 24 Hours (Table) 05/29/19 Range/Units 06:50 WBC 13.9 H (3.8-10.6) k/uL Neutrophils # 11.1 H (1.3-7.7) k/uL Assessment and Plan Assessment: Acute left lower lobe pulmonary embolism -Transition from lovenox to eliquis -Pain control -Echo without pulm htn, but does show elevated right atrial pressure -Venous Doppler of left lower extremity negative -Off control - tele - Consult Heme/onc Pleurisy - due to PE - Pain control with norco and morphine Leukocytosis, likely reactive -Repeat CBC in a.m. Hypothyroidism -Resume Synthroid, cytomel -Outpatient follow-up with Dr. Luo DVT prophylaxis: on lovenox Discussed with: patient, , nursing Anticipated discharge date: in AM Anticipated discharge place: home A total of 35 minutes was spent on the care of this complex patient more than 50% of the time was spent in counseling and care coordination.
[2019-05-29] MEDS: APIXABAN 5 MG TAB PO SCH (19:40)
[2019-05-30] MEDS: MORPHINE SULFATE 4 MG/ML SYRINGE IVP PRN ×5 (01:51→23:45)
[2019-05-30] MEDS: HYDROcodone/APAP 10-325MG 1 EACH TAB PO PRN ×2 (04:54→09:17)
[2019-05-30] MEDS: LEVOTHYROXINE 88 MCG TAB PO SCH (06:24)
[2019-05-30 06:51] LABS: Basophils % (A) 0 %; Eosinophils # (A) 0.1 k/uL (0-0.7); Eosinophils % (A) 1 %; HGB 13.3 gm/dL (11.4-16.0); Lymphocytes # (A) 1.5 k/uL (1.0-4.8); Lymphocytes % (A) 9 %; MCH 29.1 pg (25.0-35.0); MCHC 32.5 g/dL (31.0-37.0); MCV 89.5 fL (80.0-100.0); Mean Platelet Volume 7.7; Monocytes # (A) 1.3 k/uL (0-1.0); Monocytes % (A) 8 %; Neutrophils % (A) 81 %; Platelet Count 246 k/uL (150-450); RBC 4.58 m/uL (3.80-5.40); RDW 12.1 % (11.5-15.5); WBC 17.3 k/uL (3.8-10.6)
[2019-05-30] MEDS: SODIUM CHLORIDE 0.9% 1,000 ML IV SCH ×3 (07:39→18:19)
[2019-05-30] MEDS: LIOTHYRONINE SODIUM 5 MCG TAB PO SCH (07:45)
[2019-05-30] MEDS: APIXABAN 5 MG TAB PO SCH ×2 (07:45→19:37)
[2019-05-30 08:00] LABS: ALT 55 U/L (9-52); AST 39 U/L (14-36); African American GFR (CKD) >90 (>60 ml/min/1.73 sqM); Alkaline Phosphatase 68 U/L (38-126); Anion Gap 11 mmol/L; Blood Urea Nitrogen 9 mg/dL (7-17); Calcium 9.4 mg/dL (8.4-10.2); Carbon Dioxide 23 mmol/L (22-30); Chloride 103 mmol/L (98-107); Glucose 131 mg/dL (74-99); Potassium 4.3 mmol/L (3.5-5.1); Sodium 137 mmol/L (137-145); Total Bilirubin 0.8 mg/dL (0.2-1.3); Total Protein 7.6 g/dL (6.3-8.2)
--- NOTE | 2019-05-30 08:08 | XR ---
EXAMINATION TYPE: XR chest 2V DATE OF EXAM: 05/30/2019 COMPARISON: 05/28/2019 HISTORY: Pulmonary embolism. Chest pain. Lower extremity swelling. TECHNIQUE: Frontal and lateral views of the chest are obtained. FINDINGS: There is a new small left pleural effusion and left basilar airspace disease, possible pul monary infarct or atelectasis with pneumonia less likely. Trace right pleural effusion is also seen. There are low lung volumes. The cardiomediastinal silhouette is partially obscured by the left basila r consolidation. No sizable pneumothorax. Osseous structures appear intact. Cholecystectomy clips are seen. IMPRESSION: Interval development of a small left pleural effusion and left basilar airspace disease that could represent pulmonary infarct in this patient with known pulmonary embolism, atelectasis, or less likely pneumonia. Trace right pleural effusion is also developed.
[2019-05-30] MEDS: AZITHROMYCIN 500 MG TAB PO SCH (09:18)
[2019-05-30] MEDS ORDERED: SODIUM CHLORIDE 0.9% 500 ML 500 ML IV ONE (09:48)
[2019-05-30] MEDS ORDERED: MORPHINE SULFATE 4 MG/ML SYRINGE IVP STA (09:52)
[2019-05-30] MEDS: oxyCODONE-APAP 7.5-325MG 1 EACH TAB PO PRN ×3 (11:55→20:57)
--- NOTE | 2019-05-30 14:48 | P.PN ---
Subjective Progress Note Date: 05/30/19 (delayed charting patient seen at 0930) Principal diagnosis: left side pain Patient is a 33-year-old female with a past medical history of hypothyroidism who presented to the emergency department with complaints of left side and shoulder pain. In the ER she underwent an extensive evaluation. Her initial vital signs were within normal limits. Initial laboratory analysis showed an elevated white blood cell count 13.5. CT AF the chest showed pulmonary embolism in the left lower lobe second and third arterial branches. She is given a dose of Lovenox in the emergency department and arrangements made for admission. She continued to have significant amount of pain during her hospital stay. Chest x-ray on 05/30 revealed left-sided infiltrate with probable pleural effusion. Patient started on Rocephin, Zithromax, and IV fluids. Pulmonary and oncology consulted. Patient seen and examined at bedside. Still having left side pain that has moved up into her left shoulder. Still feeling short of breath and having difficulty taking deep inspiration. Denies any nausea or vomiting. Poor oral intake. Objective - Vital Signs Vital signs: Vital Signs Temp 98.6 F 05/30/19 12:45 Pulse 113 H 05/30/19 12:45 Resp 20 05/30/19 12:45 BP 125/70 05/30/19 12:45 Pulse Ox 93 L 05/30/19 12:45 Intake & Output 05/29/19 05/30/19 05/30/19 18:59 06:59 18:59 Intake Total 388 606 Output Total 775 400 Balance -387 206 Weight 84.3 kg Intake: Intake, IV Titration 50 Amount cefTRIAXone 1 gm In 50 Sodium Chloride 0.9% 50 ml @ 100 mls/hr IVPB Q24HR [facility] Rx#:[id number] Oral 388 556 Output: Urine 775 400 Other: Voiding Method Toilet Toilet Toilet # Voids 1 1 1 - Exam General: ill appearing, mild distress due to pain, appears at stated age Derm: warm, diaphoretic Head: atraumatic, normocephalic, symmetric Eyes: EOMI, no lid lag, anicteric sclera Mouth: no lip lesion, mucus membranes dry Cardiovascular: S1S2 reg, no murmur, positive posterior tibial pulse bilateral, Lungs: CTA bilateral, no rhonchi, no rales , no accessory muscle use Abdominal: soft, nontender to palpation, no guarding, no appreciable organomegaly Ext: no gross muscle atrophy, no edema, no contractures Neuro: CN II-XI grossly intact, no focal neuro deficits Psych: Alert, oriented, appropriate affect - Labs CBC & Chem 7: 05/30/19 06:30 05/30/19 06:30 Labs: Abnormal Lab Results - Last 24 Hours (Table) 05/30/19 05/30/19 Range/Units 06:30 06:30 WBC 17.3 H (3.8-10.6) k/uL Neutrophils # 14.0 H (1.3-7.7) k/uL Monocytes # 1.3 H (0-1.0) k/uL Glucose 131 H (74-99) mg/dL AST 39 H (14-36) U/L ALT 55 H (9-52) U/L Assessment and Plan Assessment: Acute left lower lobe pulmonary embolism -ELiquis -Pain control -Echo without pulm htn, but does show elevated right atrial pressure -Venous Doppler of left lower extremity negative -Off control - tele - Consult Heme/onc Pneumonia with effusion - suspect due to splinting from pain, could also be related to pulmonary infarct - rocephin, zithromx, IVF, -sputum culture - repeat CXR in AM - pulm recs: procalcitonin Pleurisy - due to PE - Pain control with percocet and morphine Hypothyroidism -Resume Synthroid, cytomel -Outpatient follow-up with Dr. Luo DVT prophylaxis: on lovenox Discussed with: patient, , nursing Anticipated discharge date: in AM Anticipated discharge place: home A total of 35 minutes was spent on the care of this complex patient more than 50% of the time was spent in counseling and care coordination.
--- NOTE | 2019-05-30 15:22 | P.CNPUL ---
History of Present Illness Consult date: 05/30/19 Reason for consult: chest pain, pulmonary embolism History of present illness: 33-year-old female patient came in with an acute onset pleuritic left-sided chest pain involving the left chest area and the left shoulder. In the ED, the patient underwent review that showed no evidence of any rib fractures on the left. CT angiogram was ordered and the patient was found to have an acute pulmonary embolism and the lower lobe pulmonary artery branches. Based on that, the patient was started on anticoagulation and currently she is on Eliquis. Noted the patient's pain was quite extensive. She still having significant amount of pain which is around 8 out of 10 in severity. She was provided incentive spirometer. Chest x-ray that was done today shows opacification of left lung base probably a combination of fluid and consolidation. She has no hemoptysis. Doppler of the lower oximetry was negative. She was taken oral Concepcin pill and she's been taken for the past 3 months. No personal or family history of DVT or pulmonary embolism. She is active and she does not need a sedentary lifestyle. Most of malignancy. No history of any recent surgeries. The patient had a grandmother with intracardiac thrombus and this was identified at the time of cardioversion for atrial fibrillation. She is currently on room air oxygen. She is known to have hypothyroidism. No other significant medical history. 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 Echocardiogram shows no significant strain pattern and the patient has an EF around 55% and the right ventricle systolic pressure was estimated to be 34 and no valvular abnormalities noted. Review of Systems Constitutional: Denies chills, Denies fever Eyes: denies as per HPI, denies blurred vision, denies bulging eye, denies decreased vision, denies diplopia, denies discharge, denies dry eye, denies irritation, denies itching, denies pain, denies photophobia, denies loss of peripheral vision, denies loss of vision, denies tunnel vision/blind spots Ears: deny: decreased hearing, ear discharge, earache, tinnitus Ears, nose, mouth and throat: Denies headache, Denies sore throat Breasts: absent: as per HPI, change in shape, gynecomastia, masses, nipple discharge, pain, skin changes, swelling Cardiovascular: Reports chest pain Respiratory: Reports dyspnea, Reports pain, Reports pain on inspiration, Reports pleurisy Gastrointestinal: Denies abdominal pain, Denies diarrhea, Denies nausea, Denies vomiting Genitourinary: Reports as per HPI Menstruation: Reports as per HPI Musculoskeletal: Reports as per HPI Musculoskeletal: absent: ankle pain, ankle stiffness, ankle swelling Integumentary: Denies pruritus, Denies rash Neurological: Reports as per HPI Psychiatric: Reports as per HPI Endocrine: Reports as per HPI Hematologic/Lymphatic: Reports as per HPI Allergic/Immunologic: Reports as per HPI Past Medical History Past Medical History: Thyroid Disorder Additional Past Medical History / Comment(s): gallstones & epigastric pain & burning History of Any Multi-Drug Resistant Organisms: None Reported Past Surgical History: Section, Cholecystectomy Past Anesthesia/Blood Transfusion Reactions: No Reported Reaction Additional Past Anesthesia/Blood Transfusion Reaction / Comment(s): Difficulty waking. Past Psychological History: No Psychological Hx Reported Smoking Status: Never smoker Past Alcohol Use History: None Reported Past Drug Use History: None Reported - Past Family History Mother Family Medical History: No Reported History, AFIB Additional Family Medical History / Comment(s): Mother is healthy, grandmother had atrial fibrillation Father Family Medical History: No Reported History Additional Family Medical History / Comment(s): Father is healthy Grandmother Family Medical History: AFIB Additional Family Medical History / Comment(s): Intracardiac thrombus Medications and Allergies Home Medications Medication Instructions Recorded Confirmed Type Acetaminophen Tab [Tylenol Tab] 1,000 mg PO Q6HR PRN 05/28/19 05/28/19 History Apixaban [Eliquis Starter Pack 0 mg PO DIRECTED 30 Days #1 pack 05/28/19 Rx (for VTE)] Levothyroxine Sodium [Synthroid] 175 mcg PO DAILY 05/28/19 05/28/19 History Liothyronine Sodium [Cytomel] 25 mcg PO DAILY 05/28/19 05/28/19 History Norgestrel-Ethinyl Estradiol 1 tab PO HS 05/28/19 05/28/19 History [[id number] Tablet] Allergies Allergy/AdvReac Type Severity Reaction Status Date / Time metoclopramide HCl Allergy Unknown Verified 05/28/19 07:36 [From Reglan] adhesive tape AdvReac owens skin Verified 05/28/19 07:36 metals Allergy Unknown Uncoded 11/28/16 14:49 Physical Exam Vitals: Vital Signs Temp Pulse Resp BP Pulse Ox 05/30/19 12:45 98.6 F 106 H 20 125/70 93 L 05/30/19 07:44 98.5 F 113 H 20 121/79 95 05/30/19 04:00 106 H 14 121/72 94 L 05/30/19 00:00 109 H 15 123/71 94 L 05/29/19 20:00 98.5 F 115 H 18 122/77 97 05/29/19 15:42 98.5 F 115 H 20 135/74 98 Intake and Output 05/30/19 05/30/19 05/30/19 06:59 14:59 22:59 Intake Total 606 Output Total 400 Balance 206 Intake: Intake, IV Titration 50 Amount cefTRIAXone 1 gm In 50 Sodium Chloride 0.9% 50 ml @ 100 mls/hr IVPB Q24HR [facility] Rx#:[id number] Oral 556 Output: Urine 400 Other: Voiding Method Toilet # Voids 1 1 Weight 84.3 kg The patient appeared well nourished and normally developed. Vital signs as documented. Head exam is unremarkable. No scleral icterus or corneal arcus noted. Neck is without jugular venous distension, thyromegaly, or carotid bruits. Carotid upstrokes are brisk bilaterally. Lungs sounds are diminished in lung bases bilaterally especially in the lung bases. Cardiac exam reveals the PMI to be normally sized and situated. Rhythm is regular. First and second heart sounds normal. No murmurs, rubs or gallops. Abdominal exam reveals normal bowel sounds, no masses, no organomegaly and no aortic enlargement. Extremities are nonedematous and both femoral and pedal pulses are normal.Examination of the skin revealed no evidence of significant rashes, suspicious appearing nevi or other concerning lesions. Neurologically the patient is awake and alert and there is no local neurological deficit Results - Laboratory Findings CBC and BMP: 05/30/19 06:30 05/30/19 06:30 PT/INR, D-dimer PT 9.3 sec (9.0-12.0) 05/28/19 07:10 INR 0.8 (<1.2) 05/28/19 07:10 Abnormal lab findings: Abnormal Labs 05/28/19 05/28/19 05/28/19 07:10 07:10 07:15 WBC 13.5 H Neutrophils # 10.1 H Monocytes # Chloride 108 H Glucose 112 H AST ALT Urine Blood Small H Urine Bacteria Rare H Urine Mucus Rare H 05/29/19 05/30/19 05/30/19 06:50 06:30 06:30 WBC 13.9 H 17.3 H Neutrophils # 11.1 H 14.0 H Monocytes # 1.3 H Chloride Glucose 131 H AST 39 H ALT 55 H Urine Blood Urine Bacteria Urine Mucus - Diagnostic Findings Chest x-ray: image reviewed Assessment and Plan Plan: 1 acute left-sided pleuritic chest pain with subsequent opacification of the left lung base in the setting of an acute pulmonary embolism confirmed by a CT angiogram. Findings are highly suspicion for pulmonary infarction. Pneumonia felt to be less likely. The patient is still having significant amount of pain. She is him IV morphine. She is on incentive spirometer. She is also on anticoagulants. No strain pattern. Risk factor was oral contraception pill. Rule out underlying factor V Leyden deficiency 2 leukocytosis, likely reactive 3 pleurisy secondary to above 4 hypothyroidism on Synthroid Plan Reassured the patient. Check pro calcitonin level. Findings are most consistent with pulmonary infarction. Continue anticoagulants. Pain control. Incentive spirometer. Stop oral contraception pill. Anticipate improvement wit hin the next 24-48 hours. We'll follow. No need to repeat CAT scan of the chest at this point in time. Repeat chest x-ray in a.m. Anticoagulants are appropriate
--- NOTE | 2019-05-30 15:54 | P.CONS ---
History of Present Illness - Reason for Consult Consult date: 05/30/19 PE on Control Requesting physician: Sobia Burks - Chief Complaint SOB - History of Present Illness Raven is a 33-year-old female patient came in with pleuritic left-sided chest pain. Complaints of pain extending to left shoulder. In the ED, the patient underwent review that showed no evidence of any rib fractures on the left. CT angiogram was ordered and the patient was found to have an acute pulmonary embolism and the lower lobe pulmonary artery branches. She was initiated on anticoagulation with Eliquis. Doppler of the lower extremities was negative. She was taken oral contraception the past 3 months. No personal or family history of DVT or p ulmonary embolism. She lives active lifestyle.No history of malignancy or recent surgeries. The patient had a grandmother with intracardiac thrombus and this was identified at the time of cardioversion for atrial fibrillation. She is currently on room air oxygen. Only noted history is hypothyroidism. 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 Echocardiogram shows EF around 55%, no h eart strain, and the right ventricle systolic pressure was estimated to be 34 and no valvular abnormalities noted. No recent car trips, plane rides, had surgery, or any medication adjustments. admitted to pain for approx 3-4 days she has had pain behind her left knee. She describes this as a pulling feeling that is worse with walking. but though from working out she may have twisted. She is lifelong non-smoker. She is still admitted secondary to the pain she is experiencing from this. Hematology has been consulted regarding the new acute event. Review of Systems A 14 point review of systems was assessed and completed and are all negative exc ept for HPI Past Medical History Past Medical History: Thyroid Disorder Additional Past Medical History / Comment(s): gallstones & epigastric pain & burning History of Any Multi-Drug Resistant Organisms: None Reported Past Surgical History: Section, Cholecystectomy Past Anesthesia/Blood Transfusion Reactions: No Reported Reaction Additional Past Anesthesia/Blood Transfusion Reaction / Comm: Difficulty waking. Past Psychological History: No Psychological Hx Reported Smoking Status: Never smoker Past Alcohol Use History: None Reported Past Drug Use History: None Reported - Past Family History Mother Family Medical History: No Reported History, AFIB Additional Family Medical History / Comment(s): Mother is healthy, grandmother had atrial fibrillation Father Family Medical History: No Reported History Additional Family Medical History / Comment(s): Father is healthy Grandmother Family Medical History: AFIB Additional Family Medical History / Comment(s): Intracardiac thrombus Medications and Allergies Home Medications Medication Instructions Recorded Confirmed Type Acetaminophen Tab [Tylenol Tab] 1,000 mg PO Q6HR PRN 05/28/19 05/28/19 History Apixaban [Eliquis Starter Pack 0 mg PO DIRECTED 30 Days #1 pack 05/28/19 Rx (for VTE)] Levothyroxine Sodium [Synthroid] 175 mcg PO DAILY 05/28/19 05/28/19 History Liothyronine Sodium [Cytomel] 25 mcg PO DAILY 05/28/19 05/28/19 History Norgestrel-Ethinyl Estradiol 1 tab PO HS 05/28/19 05/28/19 History [[id number]-07 Tablet] Allergies Allergy/AdvReac Type Severity Reaction Status Date / Time metoclopramide HCl Allergy Unknown Verified 05/28/19 07:36 [From Reglan] adhesive tape AdvReac owens skin Verified 05/28/19 07:36 metals Allergy Unknown Uncoded 11/28/16 14:49 Physical Exam Vitals: Vital Signs Temp Pulse Resp BP Pulse Ox 05/30/19 12:45 98.6 F 106 H 20 125/70 93 L 05/30/19 07:44 98.5 F 113 H 20 121/79 95 05/30/19 04:00 106 H 14 121/72 94 L 05/30/19 00:00 109 H 15 123/71 94 L 05/29/19 20:00 98.5 F 115 H 18 122/77 97 Intake and Output 05/30/19 05/30/19 05/30/19 06:59 14:59 22:59 Intake Total 606 Output Total 400 Balance 206 Intake: Intake, IV Titration 50 Amount cefTRIAXone 1 gm In 50 Sodium Chloride 0.9% 50 ml @ 100 mls/hr IVPB Q24HR [facility] Rx#:[id number] Oral 556 Output: Urine 400 Other: Voiding Method Toilet # Voids 1 1 Weight 84.3 kg Gen: Alert and Oriented, NAD Head: NCNT Neck Supple Heart RRR Lungs No increased effort CTA B Abdomen: S/ND/NT Ext: No Rash, No Edema, Equal Strength Psych: Calm and Coroperative Neuro: No Focal Deficits Noted. Results CBC & Chem 7: 05/30/19 06:30 05/30/19 06:30 Labs: Abnormal Lab Results - Last 24 Hours (Table) 05/30/19 05/30/19 Range/Units 06:30 06:30 WBC 17.3 H (3.8-10.6) k/uL Neutrophils # 14.0 H (1.3-7.7) k/uL Monocytes # 1.3 H (0-1.0) k/uL Glucose 131 H (74-99) mg/dL AST 39 H (14-36) U/L ALT 55 H (9-52) U/L Assessment and Plan Plan: Assesment and recommendations: New Acute Pulmonary Embolism: - Although she has been on control, she does not have any other provoking factors for embolism. - Continue anti-coagulation minimum 6 months, She has been advised she is not to become on eliquis and if plans to become must notify us prior to switvh anticoagulation. - Discontinue control - discussion on barrier control PLan for outpatient hypercoaguable work-up, discussed with patient Physician Attst: I have completed the full history and physical and agree with above dictation, dictated as a scribe
[2019-05-31] MEDS: oxyCODONE-APAP 7.5-325MG 1 EACH TAB PO PRN ×6 (01:29→22:01)
[2019-05-31] MEDS: MORPHINE SULFATE 4 MG/ML SYRINGE IVP PRN ×2 (03:46→12:57)
[2019-05-31] MEDS: SODIUM CHLORIDE 0.9% 1,000 ML IV SCH ×2 (03:47→08:13)
[2019-05-31] MEDS: LEVOTHYROXINE 88 MCG TAB PO SCH (06:25)
--- NOTE | 2019-05-31 07:10 | XR ---
EXAMINATION TYPE: XR chest 2V DATE OF EXAM: 05/31/2019 HISTORY: pneumonia. REFERENCE: Previous study dated 05/30/2019. FINDINGS: There continues to be left-sided airspace disease, unchanged from previous. Heart size is o bscured. There is atelectatic change of the right lung base. I suspect a left-sided effusion. IMPRESSION: NO SIGNIFICANT INTERVAL CHANGE IN THE APPEARANCE THE CHEST.
[2019-05-31 07:36] LABS: Basophils % (A) 0 %; Eosinophils % (A) 0 %; HCT 36.7 % (34.0-46.0); HGB 12.2 gm/dL (11.4-16.0); Lymphocytes # (A) 2.3 k/uL (1.0-4.8); Lymphocytes % (A) 14 %; MCHC 33.2 g/dL (31.0-37.0); MCV 90.3 fL (80.0-100.0); Mean Platelet Volume 7.9; Monocytes # (A) 1.4 k/uL (0-1.0); Monocytes % (A) 8 %; Neutrophils # (A) 12.9 k/uL (1.3-7.7); Neutrophils % (A) 77 %; Platelet Count 241 k/uL (150-450); RBC 4.07 m/uL (3.80-5.40); RDW 12.2 % (11.5-15.5); WBC 16.9 k/uL (3.8-10.6)
[2019-05-31 07:46] LABS: African American GFR (CKD) >90 (>60 ml/min/1.73 sqM); Anion Gap 9 mmol/L; Blood Urea Nitrogen 9 mg/dL (7-17); Calcium 8.8 mg/dL (8.4-10.2); Carbon Dioxide 24 mmol/L (22-30); Chloride 104 mmol/L (98-107); Glucose 110 mg/dL (74-99); Potassium 4.3 mmol/L (3.5-5.1); Sodium 137 mmol/L (137-145)
[2019-05-31] MEDS: LIOTHYRONINE SODIUM 5 MCG TAB PO SCH (08:13)
[2019-05-31] MEDS: AZITHROMYCIN 500 MG TAB PO SCH (08:13)
[2019-05-31] MEDS: APIXABAN 5 MG TAB PO SCH ×2 (08:13→19:58)
--- NOTE | 2019-05-31 13:53 | P.PN ---
Subjective Progress Note Date: 05/31/19 Principal diagnosis: chest pain, pulmonary embolism 33-year-old female patient came in with an acute onset pleuritic left-sided chest pain involving the left chest area and the left shoulder. In the ED, the patient underwent review that showed no evidence of any rib fractures on the left. CT angiogram was ordered and the patient was found to have an acute pulmonary embolism and the lower lobe pulmonary artery branches. Based on that, the patient was started on anticoagulation and currently she is on Eliquis. Noted the patient's pain was quite extensive. She still having significant amount of pain which is around 8 out of 10 in severity. She was provided incentive spirometer. Chest x-ray that was done today shows opacification of left lung base probably a combination of fluid and consolidation. She has no hemoptysis. Doppler of the lower oximetry was negative. She was taken oral Concepcin pill and she's been taken for the past 3 months. No personal or fam torrie history of DVT or pulmonary embolism. She is active and she does not need a sedentary lifestyle. Most of malignancy. No history of any recent surgeries. The patient had a grandmother with intracardiac thrombus and this was identified at the time of cardioversion for atrial fibrillation. She is currently on room air oxygen. She is known to have hypothyroidism. No other significant medical history. 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 Echocardiogram shows no significant strain pattern and the patient has an EF around 55% and the right ventricle systolic pressure was estimated to be 34 and no valvular abnormalities noted. On 05/31/2019 patient seen in follow-up on selective care unit, she states her neck and her back discomfort have significantly improved, she is able to take deeper breaths today. Room air pulse ox is 96%, hemodynamically stable, still elevated tachycardic with a heart rate up to 124 BPM, blood pressure is stable, lung sounds are diminished. Patient remains on IV fluids at 125 ML per hour, she is on oral diet, in looking probably discontinue her IV fluids, today's chest x-ray has been reviewed, showing no significant interval change in the a ppearance of the chest, and there is atelectatic changes at the right lung base and a left-sided effusion Objective - Vital Signs Vital signs: Vital Signs Temp 98.3 F 05/31/19 11:00 Pulse 124 H 05/31/19 11:00 Resp 18 05/31/19 11:00 BP 115/64 05/31/19 11:00 Pulse Ox 96 05/31/19 11:00 Intake & Output 05/30/19 05/31/19 05/31/19 18:59 06:59 18:59 Intake Total 6 1670 Output Total 400 650 Balance 1646 1020 Weight 83.8 kg Intake: Intake, IV Titration 1490 1440 Amount Sodium Chloride 0.9% 1, 1440 1440 000 ml @ 120 mls/hr IV . Q8H20M SANDY Rx#:[id number] cefTRIAXone 1 gm In 50 Sodium Chloride 0.9% 50 ml @ 100 mls/hr IVPB Q24HR SANDY Rx#:[id number] Oral 556 230 Output: Urine 400 650 Other: Voiding Method Toilet Toilet Toilet # Voids 4 2 2 - Exam GENERAL EXAM: Alert, pleasant, 33-year-old white female, comfortable in no apparent distress. HEAD: Normocephalic/atraumatic. EYES: Normal reaction of pupils, equal size. Conjunctiva pink, sclera white. NOSE: Clear with pink turbinates. THROAT: No erythema or exudates. NECK: No masses, no JVD, no thyroid enlargement, no adenopathy. CHEST: No chest wall deformity. Symmetrical expansion. LUNGS: Equal air entry with diminished breath sounds bilaterally CVS: Regular rate and rhythm, normal S1 and S2, no gallops, no murmurs, no rubs ABDOMEN: Soft, nontender. No hepatosplenomegaly, normal bowel sounds, no guarding or rigidity. EXTREMITIES: No clubbing, no edema, no cyanosis, 2+ pulses and upper and lower extremities. MUSCULOSKELETAL: Muscle strength and tone normal. SPINE: No scoliosis or deformity SKIN: No rashes CENTRAL NERVOUS SYSTEM: Alert and oriented -3. No focal deficits, tone is normal in all 4 extremities. PSYCHIATRIC: Alert and oriented -3. Appropriate affect. Intact judgment and insight. - Labs CBC & Chem 7: 05/31/19 06:59 05/31/19 06:59 Labs: Abnormal Lab Results - Last 24 Hours (Table) 05/31/19 05/31/19 Range/Units 06:59 06:59 WBC 16.9 H (3.8-10.6) k/uL Neutrophils # 12.9 H (1.3-7.7) k/uL Monocytes # 1.4 H (0-1.0) k/uL Glucose 110 H (74-99) mg/dL Assessment and Plan Plan: Assessment: 1 acute left-sided pleuritic chest pain with subsequent opacification of the left lung base in the setting of an acute pulmonary embolism confirmed by a CT angiogram. Findings are highly suspicion for pulmonary infarction. Pneumonia felt to be less likely. The patient is still having significant amount of pain. She is him IV morphine. She is on incentive spirometer. She is also on anticoagulants. No strain pattern. Risk factor was oral contraception pill. Rule out underlying factor V Leyden deficiency 2 leukocytosis, likely reactive 3 pleurisy secondary to above 4 hypothyroidism on Synthroid plan: Encourage deep breathing and coughing, continue with oral anticoagulation, patient eats her pleuritic chest pain is improving, and she is able to take deeper breaths on today's exam, oxygenation is stable on room air, repeat chest x-ray tomorrow, today's chest x-ray has been reviewed showing essentially stable findings. No fever or chills. We'll discontinue the IV fluids, patient is tolerating oral diet I performed a history & physical examination of the patient and discussed their management with my nurse practitioner, Isis Clay. I reviewed the nurse practitioner's note and agree with the documented findings and plan of care. Lung sounds are positive for diminished breath sounds throughout the lung fi elds. The findings and the impression was discussed with the patient. I attest to the documentation by the nurse practitioner. Time with Patient: Less than 30
--- NOTE | 2019-05-31 15:38 | P.PN ---
Subjective Progress Note Date: 05/31/19 Principal diagnosis: left side pain Patient is a 33-year-old female with a past medical history of hypothyroidism who presented to the emergency department with complaints of left side and shoulder pain. In the ER she underwent an extensive evaluation. Her initial vital signs were within normal limits. Initial laboratory analysis showed an elevated white blood cell count 13.5. CT AF the chest showed pulmonary embolism in the left lower lobe second and third arterial branches. She is given a dose of Lovenox in the emergency department and arrangements made for admission. She continued to have significant amount of pain during her hospital stay. Chest x-ray on 05/30 revealed left-sided infiltrate with probable pleural effusion. Patient started on Rocephin, Zithromax, and IV fluids. Pulmonary and oncology consulted. Procacitonin negative. Outpatient hyp ercoagulable work-up Patient seen and examined at bedside. Pain is much improved, breathing better, no nausea or vomiting, oral intake improved. Feeling much better. Objective - Vital Signs Vital signs: Vital Signs Temp 98.3 F 05/31/19 15:21 Pulse 124 H 05/31/19 15:21 Resp 18 05/31/19 15:21 BP 117/72 05/31/19 15:21 Pulse Ox 97 05/31/19 15:21 Intake & Output 05/30/19 05/31/19 05/31/19 18:59 06:59 18:59 Intake Total 2046 1670 Output Total 400 1300 Balance 1646 370 Weight 83.8 kg Intake: Intake, IV Titration 1490 1440 Amount Sodium Chloride 0.9% 1, 1440 1440 000 ml @ 120 mls/hr IV . Q8H20M SANDY Rx#:[id number] cefTRIAXone 1 gm In 50 Sodium Chloride 0.9% 50 ml @ 100 mls/hr IVPB Q24HR SANDY Rx#:[id number] Oral 556 230 Output: Urine 400 1300 Other: Voiding Method Toilet Toilet Toilet # Voids 4 2 2 - Exam General: Nontoxic ,no distress, appears at stated age Derm: warm, diaphoretic Head: atraumatic, normocephalic, symmetric Eyes: EOMI, no lid lag, anicteric sclera Mouth: no lip lesion, mucus membranes dry Cardiovascular: S1S2 reg, no murmur, positive posterior tibial pulse bilateral, Lungs: Coarse breath sounds bilateral, no accessory muscle use Abdominal: soft, nontender to palpation, no guarding, no appreciable organomegaly Ext: no gross muscle atrophy, no edema, no contractures Neuro: CN II-XI grossly intact, no focal neuro deficits Psych: Alert, oriented, appropriate affect - Labs CBC & Chem 7: 05/31/19 06:59 05/31/19 06:59 Labs: Abnormal Lab Results - Last 24 Hours (Table) 05/31/19 05/31/19 Range/Units 06:59 06:59 WBC 16.9 H (3.8-10.6) k/uL Neutrophils # 12.9 H (1.3-7.7) k/uL Monocytes # 1.4 H (0-1.0) k/uL Glucose 110 H (74-99) mg/dL Assessment and Plan Assessment: Acute left lower lobe pulmonary embolism -ELiquis -Pain control -Echo without pulm htn, but does show elevated right atrial pressure -Venous Doppler of left lower extremity negative -Off control - tele - Heme/onc: outpatient hypercoagulable work-up Infiltrate left lung, suspect pulmonary infarction -Pneumonia ruled out secondary to normal pro-calcitonin level -Stop IV antibiotics - repeat CXR in AM - pulm recs: Pulmonary recommendations appreciated Pleurisy - due to PE - Pain control with percocet and morphine Leukocytosis -Likely reactive -Repeat CBC in a.m. Hypothyroidism -Resume Synthroid, cytomel -Outpatient follow-up with Dr. Luo DVT prophylaxis: Karolinequis Discussed with: patient, , nursing Anticipated discharge date: in AM Anticipated discharge place: home A total of 35 minutes was spent on the care of this complex patient more than 50% of the time was spent in counseling and care coordination.
[2019-06-01] MEDS: oxyCODONE-APAP 7.5-325MG 1 EACH TAB PO PRN ×3 (03:32→11:23)
[2019-06-01 03:47] VITALS: PULSE 110
[2019-06-01] MEDS: LEVOTHYROXINE 88 MCG TAB PO SCH (06:32)
[2019-06-01 07:13] LABS: HCT 37.4 % (34.0-46.0); HGB 12.3 gm/dL (11.4-16.0); MCH 29.3 pg (25.0-35.0); MCV 88.8 fL (80.0-100.0); Mean Platelet Volume 7.9; Platelet Count 321 k/uL (150-450); RBC 4.21 m/uL (3.80-5.40); RDW 12.1 % (11.5-15.5); WBC 13.3 k/uL (3.8-10.6)
--- NOTE | 2019-06-01 07:27 | XR ---
EXAMINATION TYPE: XR chest 2V DATE OF EXAM: 06/01/2019 HISTORY: pulmonary embolism. REFERENCE: Previous study dated 05/31/2019. FINDINGS: There is left basilar airspace disease. There is a left effusion. Heart size is obscured. R ight lung appears clear. IMPRESSION: NO SIGNIFICANT INTERVAL CHANGE IN APPEARANCE OF THE CHEST.
[2019-06-01] MEDS: LIOTHYRONINE SODIUM 5 MCG TAB PO SCH (07:43)
[2019-06-01] MEDS: APIXABAN 5 MG TAB PO SCH (07:43)
[2019-06-01 12:13] VITALS: BP 103/61; RESP 18; TEMP 98.2
--- NOTE | 2019-06-01 13:05 | P.PN ---
Subjective Progress Note Date: 06/01/19 33-year-old female patient came in with an acute onset pleuritic left-sided chest pain involving the left chest area and the left shoulder. In the ED, the patient underwent review that showed no evidence of any rib fractures on the left. CT angiogram was ordered and the patient was found to have an acute pulmonary embolism and the lower lobe pulmonary artery branches. Based on that, the patient was started on anticoagulation and currently she is on Eliquis. Noted the patient's pain was quite extensive. She still having significant amount of pain which is around 8 out of 10 in severity. She was provided incentive spirometer. Chest x-ray that was done today shows opacification of left lung base probably a combination of fluid and consolidation. She has no hemoptysis. Doppler of the lower oximetry was negative. She was taken oral Concepcin pill and she's been taken for the past 3 months. No personal or family history of DVT or pulmonary embolism. She is active and she does not nee d a sedentary lifestyle. Most of malignancy. No history of any recent surgeries. The patient had a grandmother with intracardiac thrombus and this was identified at the time of cardioversion for atrial fibrillation. She is currently on room air oxygen. She is known to have hypothyroidism. No other significant medical history. 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 Echocardiogram shows no significant strain pattern and the patient has an EF around 55% and the right ventricle systolic pressure was estimated to be 34 and no valvular abnormalities noted. On 05/31/2019 patient seen in follow-up on selective care unit, she states her neck and her back discomfort have significantly improved, she is able to take deeper breaths today. Room air pulse ox is 96%, hemodynamically stable, still elevated tachycardic with a heart rate up to 124 BPM, blood pressure is stable, lung sounds are diminished. Patient remains on IV fluids at 125 ML per hour, she is on oral diet, in looking probably discontinue her IV fluids, today's chest x-ray has been reviewed, showing no significant interval change in the appearance of the chest, and there is atelectatic changes at the right lung base and a left-sided effusion On 06/01/2019, the patient is improved significantly to the point where she is hardly having any pain. No nausea. No vomiting. Doppler. No pleurisy. No hemoptysis. The patient's white cell count is at 13.3. Hemoglobin stable at 12.3. The follow-up chest x-ray shows no significant interval change compared to yesterday's chest from. She is on room air oxygen. He is ambulating. Objective - Vital Signs Vital signs: Vital Signs Temp 98.2 F 06/01/19 11:15 Pulse 110 H 06/01/19 11:15 Resp 18 06/01/19 11:15 BP 103/61 06/01/19 11:15 Pulse Ox 98 06/01/19 11:15 Intake & Output 05/31/19 06/01/19 06/01/19 18:59 06:59 18:59 Intake Total 2492 360 Output Total 1800 400 Balance 692 -40 Intake: Intake, IV Titration 1440 Amount Sodium Chloride 0.9% 1, 1440 000 ml @ 120 mls/hr IV . Q8H20M SANDY Rx#:[id number] Oral 1052 360 Output: Urine 1800 400 Other: Voiding Method Toilet Toilet # Voids 2 2 1 - Exam The patient appeared well nourished and normally developed. Vital signs as documented. Head exam is unremarkable. No scleral icterus or corneal arcus noted. Neck is without jugular venous distension, thyromegaly, or carotid bruits. Carotid upstrokes are brisk bilaterally. Lungs are clear on the right and diminished on the left Cardiac exam reveals the PMI to be normally sized and situated. Rhythm is regular. First and second heart sounds normal. No murmurs, rubs or gallops. Abdominal exam reveals normal bowel sounds, no masses, no organomegaly and no aortic enlargement. Extremities are nonedematous and both femoral and pedal pulses are normal.Examination of the skin revealed no evidence of significant rashes, suspicious appearing nevi or other concerning lesions. Neurologically awake alert and there is no focal neurological deficit - Labs CBC & Chem 7: 06/01/19 06:33 05/31/19 06:59 Labs: Abnormal Lab Results - Last 24 Hours (Table) 06/01/19 Range/Units 06:33 WBC 13.3 H (3.8-10.6) k/uL Assessment and Plan Plan: 1 acute left-sided pleuritic chest pain with subsequent opacification of the left lung base in the setting of an acute pulmonary embolism confirmed by a CT angiogram. Findings are highly suspicion for pulmonary infarction. Pneumonia felt to be less likely. The patient is still having significant amount of pain. She is him IV morphine. She is on incentive spirometer. She is also on anticoagulants. No strain pattern. Risk factor was oral contraception pill. Rule out underlying factor V Leyden deficiency 2 leukocytosis, likely reactive 3 pleurisy secondary to above 4 hypothyroidism on Synthroid Plan This patient's pain has subsided. She is asymptomatic for now. She is ambulating. No hypoxemia. Continue Eliquis. Chest x-ray shows a stable consolidation left lung base most likely related to pulmonary infarction. Continue anticoagulation and seen back in the office in 1-2 weeks for a follow- up chest x-ray. No oral contraception pills for now.
--- NOTE | 2019-06-01 17:08 | P.DS ---
Providers Date of admission: 05/28/19 10:13 Expected date of discharge: 06/01/19 Attending physician: Sobia Burks DO Consults: 05/29/19 18:57 Consult Physician Routine Consulting Provider: Mateo Garcia Consult Reason/Comments: Pulmonary embolism on control Do you want consulting provider notified?: Yes 05/30/19 07:30 Consult Physician Routine Consulting Provider: Anita Gage Consult Reason/Comments: pulmonary embolism, ?effusion Do you want consulting provider notified?: Yes Primary care physician: Alverto Luo Hospital Course: Discharge Diagnosis: Acute left lower lobe pulmonary embolism Infiltrate left lung suspect pulmonary infarction Pleurisy Leukocytosis Hypothyroidism Hospital Course: Patient is a 33-year-old female with a past medical history of hypothyroidism who presented to the emergency department with complaints of left side and shoulder pain. In the ER she underwent an extensive evaluation. Her initial vital signs were within normal limits. Initial laboratory analysis showed an elevated white blood cell count 13.5. CTA of the chest showed pulmonary embolism in the left lower lobe second and third arterial branches. She is given a dose of Lovenox in the emergency department and arrangements made for admission. She continued to have significant amount of pain during her hospital stay. Chest x-ray on 05/30 revealed left-sided infiltrate with probable pleural effusion. Patient started on Rocephin, Zithromax, and IV fluids. Pulmonary and oncology consulted. Procacitonin negative and felt to be a pulmonary infarct. Outpatient hypercoagulable work-up recommended by oncology. Her pain was controlled and she was determined stable for discharge. She will continue on eliquis. She was given instructions not to become on this medication, but needing to come of control. She was in agreement. She will follow with Dr. Gage in 2 weeks to ensure improvement in her pulmonary infarct. She will follow with Dr. Luo in 1-[address] Garcia in 4-5 weeks. She will remain off work through 06/03/19. Patient seen and examined at bedside. Feeling much improved, pain much improved, breathing better, no nausea, no vomiting. No overt signs of bleeding. Vital signs reviewed and stable. General: non toxic, no distress, appears at stated age Derm: warm, dry Head: atraumatic, normocephalic, symmetric Eyes: EOMI, no lid lag, anicteric sclera Mouth: no lip lesion, mucus membranes moist Cardiovascular: S1S2 reg, no murmur, positive posterior tibial pulse bilateral, Lungs: Decreased breath sounds left base , no accessory muscle use Abdominal: soft, nontender to palpation, no guarding, no appreciable organomega ly Ext: no gross muscle atrophy, no edema, no contractures Neuro: CN II-XI grossly intact, no focal neuro deficits Psych: Alert, oriented, appropriate affect A total of 30 minutes of time were spent preparing this complex discharge summary . Pertinent Studies: CT of the chest-left lower lobe pulmonary embolism Echocardiogram-ejection fraction 55-60%, RVSP 34.78, inferior vena cava dilated with no significant right collapse consistent with elevated right arterial pressures of greater than 20 mmHg Multiple chest x-rays-left lower lobe infiltrate with pleural effusion. Patient Condition at Discharge: Stable Plan - Discharge Summary Discharge Rx Participant: No New Discharge Prescriptions: New Apixaban [Eliquis Starter Pack (for VTE)] 0 mg PO DIRECTED 30 Days #1 pack oxyCODONE-APAP 5-325MG [Percocet 5-325 mg] 1 tab PO Q6HR PRN #20 tab PRN Reason: Pain Continue Liothyronine Sodium [Cytomel] 25 mcg PO DAILY Levothyroxine Sodium [Synthroid] 175 mcg PO DAILY Acetaminophen Tab [Tylenol] 1,000 mg PO Q6HR PRN PRN Reason: Pain Norgestrel-Ethinyl Estradiol [Zwa-Ofoanmix-40 Tablet] 1 tab PO HS Discharge Medication List Acetaminophen Tab [Tylenol] 1,000 mg PO Q6HR PRN 05/28/19 [History] Apixaban [Eliquis Starter Pack (for VTE)] 0 mg PO DIRECTED 30 Days #1 pack 05/28/19 [Rx] Levothyroxine Sodium [Synthroid] 175 mcg PO DAILY 05/28/19 [History] Liothyronine Sodium [Cytomel] 25 mcg PO DAILY 05/28/19 [History] Norgestrel-Ethinyl Estradiol [Wjf-Tvqvenvc-80 Tablet] 1 tab PO HS 05/28/19 [History] oxyCODONE-APAP 5-325MG [Percocet 5-325 mg] 1 tab PO Q6HR PRN #20 tab 06/01/19 [ Rx] Follow up Appointment(s)/Referral(s): Mateo Garcia MD [STAFF PHYSICIAN] - 4 Weeks (OFFICES WILL CALL WITH AN APPOINTMENT DATE/TIME.) Alverto Luo MD [Primary Care Provider] - 1-2 days (OFFICES ARE CLOSED AT THIS TIME. PLEASE CALL TO MAKE A POST HOSPITAL FOLLOW UP SUNDAY.) Anita Gage MD [STAFF PHYSICIAN] - 2 Weeks Patient Instructions/Handouts: Pulmonary Embolism (DC) Activity/Diet/Wound Care/Special Instructions: Regular diet, activity as tolerated Discharge/Stand Alone Forms: Work/Release Restrictions Form Discharge Disposition: HOME SELF-CARE
== END 2019-06-01 12:54 | disposition home or self-care (01) | DRG 176 ==
LOC: EC 06:12 → 3SCARD 10:13
PROVIDERS: ADMIT Internal Medicine; ATTEND Internal Medicine
DX: I26.99 Other pulmonary embolism without acute cor pulmonale (principal); J90 Pleural effusion, not elsewhere classified; E03.9 Hypothyroidism, unspecified; D72.829 Elevated white blood cell count, unspecified; Z79.01 Long term (current) use of anticoagulants; Z79.890 Hormone replacement therapy; Z90.49 Acquired absence of other specified parts of digestive tract; Z88.8 Allergy status to other drugs, medicaments and biological substances; Z88.9 Allergy status to unspecified drugs, medicaments and biological substances; Z98.891 History of uterine scar from previous surgery; Z82.49 Family history of ischemic heart disease and other diseases of the circulatory system
CPT/HCPCS: 36415; 71046; 71275; 80048; 80053; 81001; 81025; 83880; 84145; 84484; 85025; 85027; 85610; 85730; 93306; 96372; 96374; 96375; 96376; 99285

== ENCOUNTER → 2019-08-11 | Outpatient (CLI) | payer MEDICAID ==
--- NOTE | 2019-08-12 05:09 | CT ---
EXAMINATION TYPE: CT angio chest DATE OF EXAM: 08/11/2019 COMPARISON: 05/28/2019 HISTORY: 33-year-old female Follow-up to PE found in May 2019, prior in PACS for reference of PE loc ation TECHNIQUE: Contiguous axial scanning of the chest performed with IV Contrast, patient injected with 1 00 mL of Isovue 370. Coronal/sagittal MIP reconstructions performed. CT DLP: 270.2 mGycm Automated exposure control for dose reduction was used. FINDINGS: The heart is normal size without pericardial effusion. Aorta normal caliber with conventional arch vessel branching anatomy. No thoracic lymphadenopathy by CT size criteria. No flattening of the interventricular septum or reflux of contrast into the hepatic veins. Interval clearance of the previous left lower lobar, lingular branch, and additional segmental branch emboli on the left. New is patchy subpleural density within the lingula. Mild hazy dependent atelectasis. Otherwise, no additional consolidation or pleural effusion. Visualized upper abdomen shows cholecystectomy clips and a couple right-sided colonic diverticula. Bones: No osseous destructive process. IMPRESSION: 1. INTERVAL CLEARANCE OF LEFT-SIDED PULMONARY EMBOLI. 2. NEW PATCHY SUBPLEURAL OPACITY WITHIN THE INFERIOR LINGULA COULD REPRESENT SEQUELA OF INTERVAL PULM ONARY INFARCT RELATED TO THE PULMONARY EMBOLI. SOME PATCHY SUBPLEURAL ATELECTASIS OR INFILTRATE ARE A LSO POSSIBLE. CORRELATE WITH PATIENT'S SYMPTOMS.
== END | disposition home or self-care (01) ==
LOC: RADCTMAIN 17:22
PROVIDERS: ATTEND Internal Medicine Critical Care Medicine
DX: I26.99 Other pulmonary embolism without acute cor pulmonale (principal); R91.8 Other nonspecific abnormal finding of lung field; Z88.8 Allergy status to other drugs, medicaments and biological substances
CPT/HCPCS: 71275; Q9967

== ENCOUNTER 2020-10-05 09:13 | Emergency (ER) | payer MEDICAID ==
[2020-10-05 09:18] VITALS: BP 139/86; PULSE 73; RESP 16; TEMP 98.6
--- NOTE | 2020-10-05 09:33 | ED ---
Extremity Problem HPI - General Chief complaint: Extremity Problem,Nontraumatic Stated complaint: Poss DVT Time Seen by Provider: 10/05/20 09:21 Source: patient, RN notes reviewed Mode of arrival: ambulatory Limitations: no limitations - History of Present Illness Initial comments: 34-year-old female presents emergency Department chief complaint of left leg pain, swelling. Patient states she had a charley horse last night and leg states it was sore but states that she noticed some swelling today. She states she is only concerned as she had a PE, DVT last year. Patient states that she is not on any current blood thinners a believe her conjunctivae fracture was control prior. She does not take any current control. She again denies any chest pain, shortness breath, fevers or chills she states the pain is very mild in her leg. - Related Data Home Medications Medication Instructions Recorded Confirmed Acetaminophen Tab [Tylenol] 1,000 mg PO Q6HR PRN 05/28/19 05/28/19 Levothyroxine Sodium [Synthroid] 175 mcg PO DAILY 05/28/19 05/28/19 Liothyronine Sodium [Cytomel] 25 mcg PO DAILY 05/28/19 05/28/19 Norgestrel-Ethinyl Estradiol 1 tab PO HS 05/28/19 05/28/19 [[id number] Tablet] Previous Rx's Medication Instructions Recorded Apixaban [Eliquis Starter Pack 0 mg PO DIRECTED 30 Days #1 pack 05/28/19 (for VTE)] oxyCODONE-APAP 5-325MG [Percocet 1 tab PO Q6HR PRN #20 tab 06/01/19 5-325 mg] Allergies Allergy/AdvReac Type Severity Reaction Status Date / Time metoclopramide HCl Allergy Unknown Verified 10/05/20 09:18 [From Reglan] adhesive tape AdvReac owens skin Verified 10/05/20 09:18 metals Allergy Unknown Uncoded 10/05/20 09:18 Review of Systems ROS Statement: Those systems with pertinent positive or pertinent negative responses have been documented in the HPI. ROS Other: All systems not noted in ROS Statement are negative. Past Medical History Past Medical History: Deep Vein Thrombosis (DVT), Pulmonary Embolus (PE), Thyroid Disorder Additional Past Medical History / Comment(s): gallstones History of Any Multi-Drug Resistant Organisms: None Reported Past Surgical History: Section, Cholecystectomy Past Anesthesia/Blood Transfusion Reactions: No Reported Reaction Additional Past Anesthesia/Blood Transfusion Reaction / Comment(s): Difficulty waking. Past Psychological History: No Psychological Hx Reported Smoking Status: Never smoker Past Alcohol Use History: None Reported Past Drug Use History: None Reported - Past Family History Mother Family Medical History: No Reported History, AFIB Additional Family Medical History / Comment(s): Mother is healthy, grandmother had atrial fibrillation Father Family Medical History: No Reported History Additional Family Medical History / Comment(s): Father is healthy Grandmother Family Medical History: AFIB Additional Family Medical History / Comment(s): Intracardiac thrombus General Exam Limitations: no limitations General appearance: alert, in no apparent distress Head exam: Present: atraumatic, normocephalic, normal inspection Eye exam: Present: normal appearance, PERRL, EOMI. Absent: scleral icterus, conjunctival injection, periorbital swelling ENT exam: Present: normal exam, normal oropharynx, mucous membranes moist Neck exam: Present: normal inspection, full ROM. Absent: tenderness, meningismus, lymphadenopathy Respiratory exam: Present: normal lung sounds bilaterally. Absent: respiratory distress, wheezes, rales, rhonchi, stridor Cardiovascular Exam: Present: regular rate, normal rhythm, normal heart sounds. Absent: systolic murmur, diastolic murmur, rubs, gallop, clicks Extremities exam: Present: other (Mild left calf tenderness, mild swelling the left leg neurovascular intact) Course Vital Signs 10/05/20 09:14 Temperature 98.6 F Pulse Rate 73 Respiratory 16 Rate Blood Pressure 139/86 O2 Sat by Pulse 99 Oximetry Medical Decision Making - Medical Decision Making US negative for acute DVT. Patient has a left leg strain. Patient discharged in stable condition return parameters discussed. Disposition Clinical Impression: Pain of left calf, Left leg swelling Disposition: HOME SELF-CARE Condition: Stable Instructions (If sedation given, give patient instructions): Leg Pain (ED) Additional Instructions: Please return to the Emergency Department if symptoms worsen or any other concerns. Is patient prescribed a controlled substance at d/c from ED?: No Referrals: Alverto Luo MD [Primary Care Provider] - 1-2 days Time of Disposition: 10:25
--- NOTE | 2020-10-05 10:12 | US ---
EXAMINATION TYPE: US venous doppler duplex LE LT DATE OF EXAM: 10/05/2020 10:06 AM COMPARISON: US 05/28/19 CLINICAL HISTORY: pain,swelling. SIDE PERFORMED: Left TECHNIQUE: The lower extremity deep venous system is examined utilizing real time linear array sonog nel with graded compression, doppler sonography and color-flow sonography. VESSELS IMAGED: Common Femoral Vein Deep Femoral Vein Greater Saphenous Vein * Femoral Vein Popliteal Vein Small Saphenous Vein * Proximal Calf Veins (* superficial vessels) Left Leg: Negative for DVT IMPRESSION: Grayscale, color doppler, spectral doppler imaging performed of the deep veins of the lo wer extremities. There is normal flow, compressibility, vascular waveforms.
== END 2020-10-05 10:55 | disposition home or self-care (01) ==
LOC: EC 09:13
DX: M79.662 Pain in left lower leg (principal); M79.89 Other specified soft tissue disorders; E07.9 Disorder of thyroid, unspecified; Z79.890 Hormone replacement therapy; Z88.8 Allergy status to other drugs, medicaments and biological substances; Z91.048 Other nonmedicinal substance allergy status
CPT/HCPCS: 99283

== ENCOUNTER → 2020-12-17 | Outpatient (CLI) | payer MEDICAID ==
--- NOTE | 2020-12-17 13:54 | US ---
EXAMINATION TYPE: US pelvis complete transvag DATE OF EXAM: 12/17/2020 COMPARISON: NONE CLINICAL HISTORY: R10.2 Pelvic and perineal pain. TECHNIQUE: Transvaginal (TV) and Transabdominal (TA) . Date of LMP: EXAM MEASUREMENTS: Uterus: 8.2 x 4.0 x 4.5 cm Endometrial Stripe: .9 cm Right Ovary: 2.8 x 2.2 x 2.6 cm Left Ovary: 2.9 x 2.3 x 2.2 cm 1. Uterus: Anteverted wnl 2. Endometrium: wnl 3. Right Ovary: wnl 4. Left Ovary: Cystic area 1.4 x 1.7 x 1.6 cm. 5. Bilateral Adnexa: wnl 6. Posterior cul-de-sac: wnl IMPRESSION: Probable functional ovarian cyst left ovary.
== END | disposition home or self-care (01) ==
LOC: RADUSWWP 13:13
PROVIDERS: ATTEND Family Medicine
DX: R10.2 Pelvic and perineal pain (principal)
CPT/HCPCS: 76830; 76856

== ENCOUNTER → 2022-10-02 | Outpatient (CLI) | payer MEDICAID ==
--- NOTE | 2022-10-03 17:38 | US ---
EXAMINATION TYPE: US thyroid st tissue head/neck DATE OF EXAM: 10/02/2022 COMPARISON: NONE CLINICAL HISTORY: E05.90 THYROTOXICOSIS. Hyperthyroidism per order. Patient states she has hypothyroi dism. Patient on synthroid. GLAND SIZE: Right Lobe: 2.5 x 1.2 x 0.8 cm Overall Parenchyma: Appears very heterogeneous Left Lobe: 2.6 x 0.7 x 0.6 cm Overall Parenchyma: Appears very heterogeneous Isthmus Thickness: 0.16 cm NODULES RIGHT: # of nodules measured on right: 0 LEFT: # of nodules measured on left: 0 ISTHMUS: # of nodules measured in the isthmus: 0 Bilateral neck scanned, no evidence of lymphadenopathy. IMPRESSION: 1. No suspicious changes within the thyroid
== END | disposition home or self-care (01) ==
LOC: RADUSWWP 16:19
PROVIDERS: ATTEND Family Medicine
DX: E05.90 Thyrotoxicosis, unspecified without thyrotoxic crisis or storm (principal)
CPT/HCPCS: 76536